=== PATIENT | male | born 1960 | race Caucasian/White ===

== ENCOUNTER → 2020-07-30 15:19 | Outpatient (CLI) | payer BC, SELFPAY ==
--- NOTE | 2020-07-30 | DI.CT.S_ITS ---
PROCEDURE: CT UE RT WO CON INDICATIONS: Pain in right shoulder TECHNIQUE: Noncontrast 1-1.5 mm thick sections acquired from the acromioclavicular joint to the inferior scapula, with coronal and sagittal reformatting. COMPARISON: [facility] [place], [place], XR SHOULDER 2+ VIEWS RIGHT, 07/15/2020, 15:13. FINDINGS: Image quality: Excellent. Bones: No fracture identified. There is advanced joint degeneration with [id number] appearance and severe subchondral cystic change and sclerosis. There is extensive marginal osteophyte formation. Soft tissues: Scattered scar/atelectasis in the visualized lung. There is a 5 mm nodule seen in the posterior subpleural right upper lobe . There is anatomic alignment at the AC joint. High-riding humeral head suggestive of chronic rotator cuff pathology. IMPRESSION: Advanced glenohumeral joint degeneration. High-riding appearance of the humeral head suggestive of chronic rotator cuff pathology. Nonspecific 5 mm nodular focus involving the posterior right upper lobe. Given the absence of relevant prior studies. Recommend follow-up with six-month CT chest to exclude early metastatic or malignant possibilities. Dictated by: Herb Mckinney M.D. on 07/30/2020 at 16:48 Approved by: Herb Mckinney M.D. on 07/30/2020 at 17:00
== END ==
PROVIDERS: Family Provider Family Medicine; PCP Family Medicine; Referring Provider Family Medicine; Visit Provider Orthopaedic Surgery
DX: M25.511 Pain in right shoulder (principal); M19.011 Primary osteoarthritis, right shoulder; R91.1 Solitary pulmonary nodule
CPT/HCPCS: 73200

== ENCOUNTER → 2020-09-25 11:05 | Outpatient (CLI) | payer BC, SELFPAY | PROVIDERS: Family Provider Family Medicine; PCP Family Medicine; Referring Provider Orthopaedic Surgery; Visit Provider Orthopaedic Surgery | DX: Z01.818 Encounter for other preprocedural examination (principal) | CPT/HCPCS: 93005 ==

== ENCOUNTER → 2020-10-04 11:09 | Outpatient (CLI) | payer BC, SELFPAY ==
[2020-10-04 11:44] LABS: COVID19 -Nasal RAPID Negative (Negative)
== END ==
PROVIDERS: Family Provider Family Medicine; PCP Family Medicine; Visit Provider Physician Assistant
DX: Z20.822 Contact with and (suspected) exposure to COVID-19 (principal)
CPT/HCPCS: 87635

== ENCOUNTER 2020-10-06 06:17 | Inpatient (IN) | payer BC, SELFPAY ==
[2020-10-06] VITALS (22 sets, daily range): BP systolic 84–154; BP diastolic 60–94; PULSE 66–100; RESP 11–18; TEMP 36.2–36.8; O2SAT 89–96; BMI 33.2
--- NOTE | 2020-10-06 06:00 | DI.RAD.S_ITS ---
PROCEDURE: XR SHOULDER RT MIN 2V INDICATIONS: post operative right shoulder TECHNIQUE: 1 views of the shoulder were acquired. COMPARISON: [facility], XR SHOULDER 2+ VIEWS RIGHT, 07/15/2020, 15:13. FINDINGS: Bones: A single view of the right shoulder demonstrates postoperative changes of a reverse shoulder replacement. No fracture is identified. Soft tissues: Postoperative soft tissue changes are noted with air in the soft tissues. The right lung has basilar atelectasis. IMPRESSION: Postoperative changes of right shoulder replacement. Dictated by: Parker Jaramillo M.D. on 10/06/2020 at 11:32 Approved by: Parker Jaramillo M.D. on 10/06/2020 at 11:34
[2020-10-06] MEDS: ACETAMINOPHEN 325 MG TABLET 975 MG PO (07:00)
[2020-10-06] MEDS: LACTATED RINGERS 1,000 ML 42 ML IV (07:15)
--- NOTE | 2020-10-06 07:37 | PM.PREOP ---
Pre-operative Note COVID-19 COVID-19 status: Negative Result date/Date tested (Pos, Neg/Pending): 10/04/20 Interval Note History & Physical reviewed/Exam performed by Physician: Yes Changes to H&P: No
[2020-10-06] MEDS: MIDAZOLAM 2 MG/2 ML VIAL IV (07:40)
[2020-10-06] MEDS: fentaNYL 100 MCG/2 ML INJ 50 MCG IV (07:40)
--- NOTE | 2020-10-06 08:07 | SUR.PREOP ---
Block start time [0740] . Monitoring initiated and maintained throughout procedure. Oxygen and medications given per anesthesiologist instructions. pt received 50 mcg fentanyl and 1mg versed per MD instruction at 0740. Patient remained stable throughout procedure, no adverse reactions noted. Block end time [0757 ].
[2020-10-06] MEDS: CEFAZOLIN 2 GM/100 ML FROZ.PIGGY IV (08:10)
--- NOTE | 2020-10-06 08:42 | SUR.OPER ---
Beach chair with Schlein shoulder positioner. Lower body on padded OR bed. Head in foam padded head cradle, secured with straps. Non-operative arm secured <90 degrees abduction. Pillow under knees. Safety belt at thigh. Cloth tape over blanket over lower legs.
[2020-10-06] MEDS: BUPIVACAINE 0.5% W/ EPI (PF) 30 ML VIAL INJ (08:53)
[2020-10-06] MEDS: TRANEXAMIC ACID 1,000 MG VIAL 1000 MG INJ ×2 (09:27→09:49)
--- NOTE | 2020-10-06 10:05 | PM.OP.1 ---
Operative Date/Time/Diagnoses Date of procedure: 10/06/20 Time of procedure: 10:05 Pre-op diagnosis: Right shoulder rheumatoid and osteoarthritis Post-op diagnosis: same Procedure & Clinicians Procedure: Right reverse total shoulder replacement Same procedure as scheduled: Yes Indications: The patient is had chronic right shoulder pain unresponsive to nonoperative therapies. Radiographic studies have revealed changes consistent with arthritis and a very thin rotator cuff. Given the appearance of the rotator cuff on preoperative studies and the known history of rheumatoid arthritis, which can lead to rotator cuff tears, I have recommended a reverse total shoulder. They have elected to proceed with this surgery after discussion of the risks benefits and alternatives. Risks discussed included but were not limited to: Failure to improve, instability, infection, nerve damage, deep venous thrombosis, pulmonary embolism, stroke, coma, myocardial infarction and . Surgeon: Maik Hernadez Animal Cytologist: Ganesh Lewis Click Yes if Unassisted: No Anesthesia Type: General, Peripheral nerve block and Local Operative Notes Findings: Complete loss of cartilage on both the glenoid and the humeral head with a large peripheral osteophyte on both the humerus and the glenoid. In addition there were large cysts in the glenoid head. Closure Type: primary Specimen(s): none sent Prosthetic devices, grafts, tissues, transplants, or devices: Implants used in this procedure were manufactured by the [employer] and included a [employer] reverse total shoulder system with a modular 24 mm +4 lateralized base plate with a 30 mm central screw, there were 4 peripheral locking screws that were 5.5 mm in diameter measuring 32, 32, 28 and 16 mm in length. A 36/24 glenosphere was used with a central torque screw. On the humeral side, a size 8 stem with a 36 neutral suture cup was placed with a 36+ 6 small humeral insert. Applied: implant(s) Estimated Blood Loss (mL): 200 Blood products transfused: none Procedure in detail: The patient was seen in the preoperative area where they identified the right shoulder as the operative site and this was marked with my initials. They received preoperative antibiotics and underwent the induction of an interscalene block. They were taken to the operating room and placed on the operating room table in a supine position with the underwent the induction of a general anesthetic. There were then repositioned in the ?beach chair? position using a dedicated positioner. All pressure points were well padded. The knees were slightly bent to prevent tension on the sciatic nerves. The right arm was prepared from the fingertips to the base of the neck with ChloraPrep in the usual fashion and draped through sterile drapes. An approximately 15 cm incision was created starting at the clavicle just above the coracoid and going to the deltoid insertion. The deltopectoral interval was used to access the shoulder taking the vein to the medial side. The vein was protected throughout the case. The upper 1 cm of the pectoralis major was released. The biceps groove was identified and used as a guide to releasing the remaining subscapularis. The biceps itself had previously ruptured. The subscapularis was tagged for manipulation of the muscle. The shoulder was dislocated and a proximal humeral osteotomy performed using an intramedullary guide. The proximal humeral osteophytes were then removed. A proximal humeral protector was then placed. Retractors were placed access the glenoid. A 360 degree release was performed of the remaining subscapularis with care being taken to protect the axillary nerve. The soft tissues were removed circumferentially around the glenoid. The guide was used to drill the guide pin in the center of the inferior glenoid. The Reamer was then used followed by the larger Reamer for the size 36 glenosphere. The center hole in the glenoid was enlarged and tapped, the glenoid base plate was then inserted. The peripheral locking screws were then placed. The glenoid head was applied and checked for rotational and axial stability before placing the set screw. We then turned our attention to the humerus. The proximal humeral protector was removed. Broaching was then performed beginning with a size 6 broach and working up until a size 8 which had excellent fit and rotational stability. The guide for the proximal metaphyseal reamer was then applied and the metaphysis was reamed appropriately. The trial metaphyseal portion of the body was then applied to the broach. Trial reductions were performed and the size of the cup were optimized. Stability was checked in maximal internal and external rotation and range of motion was checked to allow access to the top of the head, internal rotation to an excess of 50? in the ?scarecrow position? and the ability to reach the groin. The appropriate final prosthetic components were then opened. The humeral prosthetic was then impacted into position. The humeral cup was placed after checking again for offset with another trial. The joint was relocated and irrigated. The deltopectoral interval was reapproximated with 0 Vicryl. Subcutaneous layer was closed with interrupted 3-0 Vicryl and skin with a running 3 0 V lock suture and Dermabond. Subcutaneous tissues were then infiltrated with 0.5% Marcaine for postoperative pain control. An Aquacel Ag dressing was applied and the patient's arm was placed in a sling. The patient was then transferred to the recovery room in good condition having tolerated the procedure well. Complications: none Post-operative Condition: stable Disposition: PACU Plan for aftercare: The patient will be allowed to do pendulum exercises and to use his hand in front of his body below shoulder level for 6 weeks. He will then be advanced to a strengthening program. He will remain in the hospital overnight until he is stable for discharge home tomorrow.
[2020-10-06] MEDS: OXYCODONE IR 5 MG TABLET PO (10:43)
--- NOTE | 2020-10-06 11:14 | PC.NURSE ---
Day shift: Pt on AC untit from PACU at approx 1115. Oriented to room and call light. RA 95%. Uses CPAP for ARIK. VS WNL. Tolerating SCD's. Reports pain 03/28. Denies any nausea. Tolerating ice water. He is A&Ox3. Call light in reach. Agrees to not get OOB w/o help from staff.
[2020-10-06] MEDS: OXYCODONE IR 10 MG TABLET PO ×3 (11:26→19:37)
[2020-10-06] MEDS: LACTATED RINGERS 1,000 ML 100 ML IV ×2 (11:30→21:05)
[2020-10-06] MEDS: ACETAMINOPHEN 325 MG TABLET 650 MG PO ×2 (13:52→21:00)
[2020-10-06] MEDS: hydrOXYzine pamoate 25 MG CAPSULE PO (14:56)
--- NOTE | 2020-10-06 16:00 | PT.IIE ---
Current Diagnoses Rheumatoid arthritis, unspecified (10/06/20) Unspecified rotator cuff tear or rupture of right shoulder, not specified as traumatic (10/06/20) Surgery Performed Operation Date: 10/06/20 07:45 Actual Procedures p Total Shoulder Arthroplasty - Reverse(Right) - Maik Hernadez MD Surgical History (Last Reviewed 07/30/20 @ 16:39 by Bruno Pickens MD) History of bilateral knee replacement (~2009) Medical History (Last Updated 07/30/20 @ 17:04 by Bruno Pickens MD) BPH (benign prostatic hyperplasia) GERD (gastroesophageal reflux disease) Hypertension Obstructive sleep apnea of adult (~2004) Primary insomnia Rheumatoid arthritis Snoring Physical Therapy Inpatient Evaluation/Re-Eval M1 PT/OT-IP Prior Functional Status Start: 10/06/20 14:06 Freq: NEEDED Status: Active Protocol: Document 10/06/20 16:00 DLM (Rec: 10/06/20 17:23 DLM [id number]) Medical Review Prior Functional Status Medical History Reviewed Yes Diet/Fluid Consistency Regular Communication WNL Mobility and Gait Independent without device, community distances Activities of Daily Living and IADL's Independent Prior Functional Level (Other details) home CPAP Social History Household Members spouse Living Arrangements Mobile home Number of Floors (Floors) One Floor Number of Stairs To Enter/Railing? 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, has planned to take 12 weeks off of work, his will be available to help him at home, his works as a caregiver M2 PT-IP Current Condition Start: 10/06/20 14:06 Freq: NEEDED Status: Active Protocol: Document 10/06/20 16:00 DLM (Rec: 10/06/20 17:23 DLM [id number]) Physical Therapy Current Condition Current Condition Evaluation Date 10/06/20 Treatment Diagnosis right reverse total shoulder arthroplasty Onset Date 10/06/20 Precautions Shoulder Precautions Sling,No External Rotation,No Abduction,Pendulums Other Precautions no active use right shoulder, ok to use hand in front of body Weight Bearing Status Weight Bearing Status Non-Weight Bearing M3 PT-IP Subjective Start: 10/06/20 14:06 Freq: NEEDED Status: Active Protocol: Document 10/06/20 16:00 DLM (Rec: 10/06/20 17:23 [facility] [id number]) Subjective Physical Therapy Visit Type Type Initial Evaluation Visit Start Time 15:20 Visit Stop Time 16:00 Total Visit Minutes 40 Number of 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 Visits 0 Physical Therapy Visit Comments Patient Comments he would like to get up to toilet and sit up in the chair Patient Goals he wants to discharge home with his to help him Therapy Pain Assessment Pain When Pain Assessed After Treatment Pain Present Pain Present Pain Reported Location right shoulder Intensity 2 Scale Used Numeric (0 - 10) Description Aching Pain Behaviors Guarding Pain Management Techniques Apply Cold,Re-positioning M4 PT-IP Mobility and Gait Start: 10/06/20 14:06 Freq: NEEDED Status: Active Protocol: Document 10/06/20 16:00 DL (Rec: 10/06/20 17:23 [facility] [id number]) PT-Bed Mobility Assessment Supine to Sit Supine to Sit Contact Guard Assistance Scooting Scooting to Edge of Bed Independent PT-Transfer Assessment Sit to and From Stand Sit to and from Stand Standby Assistance Equipment Transfer Assistive Device Gait Belt Transfers Transfer Destination Bed,Chair Transfer Technique Stand Step Pivot Transfer Ability Level of Assist Standby Assistance Comments Mobility Comments mild intermittent episodes of dizziness that resolved with standing rest breaks Gait Assessment Gait Gait Assistance Required: Standby Assistance Distance (Feet) 120 Assistive Devices Assistive Device Gait Belt Factors Limiting Gait Function Factors Limiting Gait Function Decreased Activity Tolerance Comments Gait Comments slow pace of gait, standing rest breaks during gait to complete the distance PT-Balance Assessment Sitting Balance and Reactions Static Sitting Balance Ability Good Dynamic Sitting Balance Ability Good Standing Balance and Reactions Static Standing Balance Ability Good Dynamic Standing Balance Ability Good M5 PT-IP Objective Assessments Start: 10/06/20 14:06 Freq: NEEDED Status: Active Protocol: Document 10/06/20 16:00 DLM (Rec: 10/06/20 17:23 [facility] [id number]) Orientation Orientation/Cognition Level of Alertness Alert Orientation Name,Age,Birthday,Month,Date, Year,Day of Week,Place, Situation Language Function Ability No Deficits Noted Safety Awareness Understands Safety Issues Memory Description No Deficits Noted Comments answered his questions about his post-sx precautions, over- all he shows good understanding Gross Range of Motion Upper Extremity ROM Assessment Right Impaired Impairments no use right shoulder post-op, pt moving fingers today, block still in affect Lower Extremity ROM Assessment Within Functional Limits Strength Upper Extremity Strength Assessment Right Impaired Shoulder no functional use post-op Elbow weakness associated with surgical block operator moving fingers Lower Extremity Strength Assessment Within Functional Limits Coordination Assessment Gross Coordination Gross Coordination WNL Assessment Coordination Comments coordination testing not performed in right UE due to post-op restrictions and affects of surgical block Sensation Assessment Sensation Gross Sensation Right UE Impaired Light Touch Impaired Sensation Description Numbness Comments Sensation Comments surgical block in affect right UE Muscle Tone Muscle Tone WNL Yes Comments Muscle Tone Comments guarding noted right upper trap M6 PT-IP Treatment Start: 10/06/20 14:06 Freq: NEEDED Status: Active Protocol: Document 10/06/20 16:00 DLM (Rec: 10/06/20 17:23 DLM [id number]) Physical Therapy Treatment Exercises Exercises Hand ROM Education Education Provided Precautions,Safety Other Treatments Other Treatment Performed pt up to toilet to urinate and then sat up in recliner at the end of this visit, pt educated to have nursing staff assist with mobility, his call light is within reach M7 PT-IP Assessment and Plan Start: 10/06/20 14:06 Freq: NEEDED Status: Active Protocol: Document 10/06/20 16:00 DLM (Rec: 10/06/20 17:23 DLM [id number]) PT Summary Assessment and Plan Potential Rehabilitation Potential Good Status of Condition at Evaluation Evolving Summary Impairments Pain,ROM,Strength,Bed Mobility ,Transfers,Gait,Activity Tolerance Assessment Summary Hudson is progressing well on day of surgery. He is alert and tolerating ambulating in the nava. Intermittent dizziness caused his gait pattern to be slower and more cautious today. He reports feeling better after being up moving. Pt sitting up in recliner. His sling is in place on right shoulder and it was adjusted for comfort. Pt understands he is to avoid using right shoulder functionally. Anticipate he will be able to discharge home with his when he is medically stable. Will follow- up tomorrow to progress his mobility, teach post-op ex and educate in post-sx restrictions. Pt would prefer his to be present tomorrow for education and reports she will be here around 8 AM. Goals Bed Mobility Goal Independent Transfer Goal Independent Gait Goal Independent Gait Distance 300 Other Goals up and down 5 steps with one rail and SBA Days to Meet Goals 2 Frequency of Treatment Frequency Of Treatment Twice a Day Treatment Plan Physical Therapy Treatment Plan Bed Mobility Training,Transfer Training,Gait Training, Therapeutic Exercise,Post Op Education,Discharge Planning, Hot or Cold Pack Recommendations To Nursing Amount of Assist Needed Standby Assistance Discharge Recommendations PT Discharge Recommendations Home with Assistance, Outpatient PT Other Discharge Recommendations to start out-pt PT per surgeon orders Transportation Needs at Discharge Private Vehicle
--- NOTE | 2020-10-06 17:32 | PC.NURSE ---
Addendum entered by Kristin Kaur R.N. 10/06/20 22:03: Relatively uneventful evenig. Med @ 1935 for discomfort w/fair relief. IVF continue as per orders. Satisfactory post op course. Pt hopes D/C in am Call light w/in reach. Pt calls appropriately for needs Continue w/plan of care. Original Note: Pt ambulated hallway w/ PT Sitting in chair for dinner. SpO2 98% RA Right arm dsg CDI, arm in sling CMS + IV LR @ 100cc/hr infusing into the LFA via pump w/o incidence. Stable post op course. Call light w/in reach, pt calls appropriate for needs.
[2020-10-06] MEDS: DOCUSATE 100 MG CAPSULE PO (20:59)
[2020-10-06] MEDS: NAPROXEN 250 MG TABLET 500 MG PO (20:59)
[2020-10-06] MEDS: METOPROLOL ER 50 MG TABLET PO (21:00)
[2020-10-06] MEDS: ASPIRIN EC 81 MG TABLET PO (21:00)
[2020-10-06] MEDS: HYDRALAZINE 10 MG TABLET PO (21:01)
[2020-10-07] MEDS: OXYCODONE IR 10 MG TABLET PO ×4 (01:12→11:37)
[2020-10-07] MEDS: hydrOXYzine pamoate 25 MG CAPSULE PO ×2 (01:12→11:37)
[2020-10-07 03:27] VITALS: BP 135/85; PULSE 85; RESP 18; TEMP 36.3; O2SAT 96
[2020-10-07] MEDS: PANTOPRAZOLE 20 MG TABLET PO (05:39)
[2020-10-07 06:06] LABS: Hematocrit 39.5 % (41-53); Hemoglobin 13.4 g/dL (13.5-17.5)
[2020-10-07 07:43] VITALS: PULSE 85; RESP 16; O2SAT 96
[2020-10-07 07:50] VITALS: BP 140/84; PULSE 62; RESP 18; TEMP 37; O2SAT 97
[2020-10-07] MEDS: METOPROLOL ER 50 MG TABLET PO (08:28)
[2020-10-07] MEDS: HYDRALAZINE 10 MG TABLET PO (08:28)
[2020-10-07] MEDS: TAMSULOSIN 0.4 MG CAPSULE PO (08:28)
[2020-10-07] MEDS: ACYCLOVIR 400 MG TABLET PO (08:28)
[2020-10-07] MEDS: DOCUSATE 100 MG CAPSULE PO (08:28)
[2020-10-07] MEDS: LOSARTAN 50 MG TABLET 100 MG PO (08:28)
[2020-10-07] MEDS: ACETAMINOPHEN 325 MG TABLET 650 MG PO (08:29)
[2020-10-07] MEDS: ASPIRIN EC 81 MG TABLET PO (08:29)
[2020-10-07] MEDS: NAPROXEN 250 MG TABLET 500 MG PO (08:29)
[2020-10-07] MEDS: FOLIC ACID 0.4 MG TABLET PO (08:30)
--- NOTE | 2020-10-07 10:03 | P.PN_ITS ---
Subjective Subjective Date Patient Seen: 10/07/20 Time Patient Seen: 10:04 Interval history: Patient is POD#1 s/p right reverse TSA with Dr. Hernadez. Pain has been moderate and controlled with Oxycodone. Has mobilized with PT. No chest pain or shortness of breath. Tolerating a diet. No complaints. Exam Vital Signs (past 8 hours): - 10/07/20 03:27 10/07/20 07:43 10/07/20 07:50 Temperature 97.3 F L 98.6 F Pulse Rate 85 85 62 Respiratory Rate 18 16 18 Blood Pressure 135/85 140/84 Pulse Oximetry 96 96 97 Oxygen Delivery Method Room Air Oxygen Flow Rate 0 Narrative Exam Narrative: 59 year old male resting in chair, alert and oriented in no acute distress. Aquacel dressing in place is CDI. Patient able to flex/extend the wrist and fingers. 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 SILT. Brisk capillary refill. Objective Labs Result Diagrams: 10/07/20 05:40 Labs: Laboratory Results - last 24 hr 10/07/20 05:40 Hgb 13.4 L Hct 39.5 L PFSH Medical History BPH (benign prostatic hyperplasia) GERD (gastroesophageal reflux disease) Hypertension Obstructive sleep apnea of adult (~2004) Primary insomnia Rheumatoid arthritis Snoring Surgical History History of bilateral knee replacement (~2009) Social History household members: spouse Smoking Status: Former smoker alcohol intake: current Assessment & Plan Assessment & Plan narrative: -POD #1 s/p revere TSA. Patient doing well. -He has already worked with PT and was able to mobilize well. -Pain controlled with Oxycodone, prescription provided. -ASA 81mg BID for DVT prophylaxis. -Discharge to home later today.
--- NOTE | 2020-10-07 10:20 | PT.IPTN ---
Current Diagnoses Rheumatoid arthritis, unspecified (10/06/20) Unspecified rotator cuff tear or rupture of right shoulder, not specified as traumatic (10/06/20) Surgery Performed Operation Date: 10/06/20 07:45 Actual Procedures p Total Shoulder Arthroplasty - Reverse(Right) - Maik Hernadez MD Physical Therapy Treatment Note M2 PT-IP Current Condition Start: 10/06/20 14:06 Freq: NEEDED Status: Discharge Protocol: Document 10/06/20 16:00 DLM (Rec: 10/06/20 17:23 DLM [id number]) Physical Therapy Current Condition Current Condition Evaluation Date 10/06/20 Treatment Diagnosis right reverse total shoulder arthroplasty Onset Date 10/06/20 Precautions Shoulder Precautions Sling,No External Rotation,No Abduction,Pendulums Other Precautions no active use right shoulder, ok to use hand in front of body Weight Bearing Status Weight Bearing Status Non-Weight Bearing M3 PT-IP Subjective Start: 10/06/20 14:06 Freq: NEEDED Status: Discharge Protocol: Document 10/07/20 09:12 CLB (Rec: 10/07/20 12:08 CLB [id number]) Subjective Physical Therapy Visit Type Type Treatment Note Visit Start Time 09:12 Visit Stop Time 10:20 Total Visit Minutes 28 Notes split treat [phone] present Number of EXTERN Visits 1 Physical Therapy Visit Comments Patient Comments Pt eager to discharge. Therapy Pain Assessment Pain When Pain Assessed After Treatment Pain Present Pain Present Pain Reported M4 PT-IP Mobility and Gait Start: 10/06/20 14:06 Freq: NEEDED Status: Discharge Protocol: Document 10/07/20 09:12 CLB (Rec: 10/07/20 12:08 CLB [id number]) PT-Bed Mobility Assessment Supine to Sit Supine to Sit Standby Assistance PT-Transfer Assessment Sit to and From Stand Sit to and from Stand Standby Assistance Equipment Transfer Assistive Device Gait Belt Transfers Transfer Destination Chair Transfer Technique Stand Step Pivot Transfer Ability Level of Assist Standby Assistance Comments Mobility Comments Pt able to perform all mobility SBA, able to stand w/ o use of UE's, able to provide SBA with ambulation in nava and on stairs. Gait Assessment Gait Gait Assistance Required: Standby Assistance Distance (Feet) 275 Assistive Devices Assistive Device Gait Belt Factors Limiting Gait Function Factors Limiting Gait Function Decreased Activity Tolerance Comments Gait Comments Pt able to ambulate ~275ft with providing SBA, pt ambulates slowly but without need for rest breaks and no LOB. Stair Climbing Assessment Evaluation Level of Assist On Stairs Standby Assistance Devices Stair Climbing Assistive Devices Left Railing,Right Railing Technique/Endurance Stair Climbing Direction Ascend and Descend Stair Climbing Technique Step Over Step,Step to Step Number of Steps Climbed 3 Stair Climbing Set # Repetitions (reps) 2 Comments Stair Climbing Comments Pt ascended step over step and descended using step to step. M5 PT-IP Objective Assessments Start: 10/06/20 14:06 Freq: NEEDED Status: Discharge Protocol: Document 10/06/20 16:00 DLM (Rec: 10/06/20 17:23 DLM [id number]) Orientation Orientation/Cognition Level of Alertness Alert Orientation Name,Age,Birthday,Month,Date, Year,Day of Week,Place, Situation Language Function Ability No Deficits Noted Safety Awareness Understands Safety Issues Memory Description No Deficits Noted Comments answered his questions about his post-sx precautions, over- all he shows good understanding Gross Range of Motion Upper Extremity ROM Assessment Right Impaired Impairments no use right shoulder post-op, pt moving fingers today, block still in affect Lower Extremity ROM Assessment Within Functional Limits Strength Upper Extremity Strength Assessment Right Impaired Shoulder no functional use post-op Elbow weakness associated with surgical inverted block operator moving fingers Lower Extremity Strength Assessment Within Functional Limits Coordination Assessment Gross Coordination Gross Coordination WNL Assessment Coordination Comments coordination testing not performed in right UE due to post-op restrictions and affects of surgical block Sensation Assessment Sensation Gross Sensation Right UE Impaired Light Touch Impaired Sensation Description Numbness Comments Sensation Comments surgical block in affect right UE Muscle Tone Muscle Tone WNL Yes Comments Muscle Tone Comments guarding noted right upper trap M6 PT-IP Treatment Start: 10/06/20 14:06 Freq: NEEDED Status: Discharge Protocol: Document 10/07/20 09:12 CLB (Rec: 10/07/20 12:08 CLB [id number]) Physical Therapy Treatment Exercises Exercises Shoulder Pendulums,Wrist ROM, Hand ROM Education Education Provided Precautions,Safety Other Treatments Other Treatment Performed Pt instructed on galina/doff sling, able to assist. M7 PT-IP Assessment and Plan Start: 10/06/20 14:06 Freq: NEEDED Status: Discharge Protocol: Document 10/07/20 09:12 CLB (Rec: 10/07/20 12:08 CLB [id number]) PT Summary Assessment and Plan Potential Rehabilitation Potential Good Status of Condition at Evaluation Evolving Summary Impairments Pain,ROM,Strength,Bed Mobility ,Transfers,Gait,Activity Tolerance Assessment Summary Pt requiring SBA with assisting for all mobility. Pt able to climb steps and ambulated safely ~275ft. Pt's able to assist with galina/ doff sling. Goals Bed Mobility Goal Independent Transfer Goal Independent Gait Goal Independent Gait Distance 300 Other Goals up and down 5 steps with one rail and SBA Days to Meet Goals 2 Frequency of Treatment Frequency Of Treatment Twice a Day Treatment Plan Physical Therapy Treatment Plan Bed Mobility Training,Transfer Training,Gait Training, Therapeutic Exercise,Post Op Education,Discharge Planning, Hot or Cold Pack Recommendations To Nursing Amount of Assist Needed Standby Assistance Discharge Recommendations PT Discharge Recommendations Home with Assistance, Outpatient PT Other Discharge Recommendations to start out-pt PT per surgeon orders Transportation Needs at Discharge Private Vehicle
[2020-10-07 10:26] VITALS: BP 148/83; PULSE 67; PULSE 68
--- NOTE | 2020-10-07 11:47 | PC.NURSE ---
Day shift: Pt left unit at approx 1130 via WC. Pt is w/ his and she will drive him home to [facility]. Medicated for pain just prior to d/c. Paperwork is signed and all questions answered. Pt has MD scripts. Pt has all personal belongings. Aquacel remains CDI and sling tolerated by Pt. Takne to car in by MARCK Pan.
--- NOTE | 2020-10-07 14:36 | CM.IDA ---
Initial DCP Assessment Note Pt is a 59 yo male, resident of [place], now POD#1 from right total shoulder surgery w/ Dr Hernadez PCP: Bruno Pickens Payer: out of state [employer] gap Reviewed chart, pt discussed in multidisciplinary rounds this morning. Therapy has cleared pt for return home w/family to assist and pt has planned for home, DC order from Ortho has already been initiated this morning. No needs expected from DC planning team although will remain available in case this changes today. SONIA Decker
== END 2020-10-07 11:48 | disposition home or self-care (01) | DRG 483 ==
PROVIDERS: Admitting Provider Orthopaedic Surgery; Family Provider Family Medicine; PCP Family Medicine; Referring Provider Family Medicine; Visit Provider Orthopaedic Surgery
PROC: 0RRJ00Z Replacement of Right Shoulder Joint with Reverse Ball and Socket Synthetic Substitute, Open Approach (ICD-10-PCS; CPT 23472; principal; 2020-10-06 07:45)
DX: M06.811 Other specified rheumatoid arthritis, right shoulder (principal); M75.101 Unspecified rotator cuff tear or rupture of right shoulder, not specified as traumatic; I10 Essential (primary) hypertension; G47.33 Obstructive sleep apnea (adult) (pediatric); K21.9 Gastro-esophageal reflux disease without esophagitis; Z87.891 Personal history of nicotine dependence
CPT/HCPCS: 36415; 64415; 73030; 85014; 85018; 94762; 97116; 97162; 97530; C1776; J0330; J0690; J1100; J2250; J2405; J2704; J3010

== ENCOUNTER 2021-05-28 16:45 | Outpatient (RCR) | payer BC, SELFPAY ==
[2020-10-06 11:46] VITALS: BMI 33.2
--- NOTE | 2021-05-11 17:30 | PT.OPPOC ---
Physical, Occupational & Speech Therapy At [facility] Current Diagnoses Stiffness of other specified joint, not elsewhere classified (05/11/21) Spinal stenosis, lumbar region with neurogenic claudication (05/11/21) Visit Care Team Role Provider Type Bruno Pickens MD Family Provider Physician Primary Care Provider Specialty: Family Practice Address: [address] [place] [address], [id number] Email: [email or web address] Meek Mendez MD Attending Provider Physician Referring Provider Specialty: Physical Medicine and Rehab Address: [address] [place] [address], [address] Email: [email or web address] Plan Of Care PT-OP-T Assessment and Plan Start: 05/11/21 17:42 Freq: Status: Active Protocol: Document 05/11/21 16:45 DCW (Rec: 05/12/21 10:04 DCW [id number]) Physical Therapy Assessment Rehab Potential Rehabilitation Potential Good Evaluation Complexity Number of Personal Factors/Comorbidities 3 or More Number of Body Systems Impaired 4 or More Clinical Presentation at Evaluation Evolving Impairments Impairments Activity Tolerance,Functional Activities,Functional Mobility ,Pain,ROM,Soft Tissue Mobility ,Tone Other Concerns Barriers to Rehabilitation RA, HTN, Hx B TKA, Hx R reverse TSA Goals Three Impairment Pt unable to stand longer than 30 minutes without increased back pain Half-Way Goal (LTG) Pt to report ability to stand >60 minutes without increased back pain LTG Duration 07/12/21 Two Impairment Pt experiences increased pain when lifting more than 30 pounds Residential Collections Goal (LTG) Pt to increase core strength to assist stabilizing back during lifting to enable him to change water jugs (35 pounds) on his home water cooler without increased pain LTG Duration 07/11/21 One Impairment Pt does not have an appropriate home exercise program Short Term Goal (STG) Pt to be independent and compliant with an appropriate HEP STG Duration 06/11/21 Assessment Summary Assessment Pt presents with signs and symptoms consistent with referring diagnosis of Spinal stenosis/DJD in Lumbar spine. Pt exhibits decreased joint mobility/lumbar ROM, increased paraspinal tone, core weakness, and increased pain with standing/lifting. Pt should benefit from skilled therapy focusing on STM, joint mobilization, and strengthening. Pt rehab may be limited secondary to RA and recent total shoulder replacement. Physical Therapy Plan Frequency and Duration Frequency of Treatment 2x/Week Duration of Treatment Two months Plan of Care Start Date 05/11/21 Plan of Care End Date 07/11/21 Therapeutic Interventions Therapeutic Interventions Aquatic Therapy,Home Exercise Program,Joint Mobilizations, Neuromuscular Re-education, Patient/Caregiver Education, Self-Care/Home Management,Soft Tissue Mobilization, Therapeutic Activities, Therapeutic Exercises Modalities Cold Pack/Ice Massage,Electric Stimulation,Hot Packs, Ultrasound Next Visit Focus/Plan Next Note Type Treatment Note Next Visit Plan Core strengthening, STM, Joint mobilizations Plan of Care Dates Plan of Care Start Date 05/11/21 Plan of Care End Date 07/11/21 Electronically Signed by: Agustín Boss, PT 05/12/21 1004 Please Sign and Return: I have reviewed this Plan of Care and certify that the skilled therapy services above are required to meet the patient?s needs. Physician Signature Date Printed Name and Credentials Clinical Instructor Signature Printed Name and Credentials
--- NOTE | 2021-05-11 17:30 | PT.OIE ---
Current Diagnoses Stiffness of other specified joint, not elsewhere classified (05/11/21) Spinal stenosis, lumbar region with neurogenic claudication (05/11/21) Past Medical History (Last Updated 03/05/21 @ 16:27 by Bruno Pickens MD) BPH (benign prostatic hyperplasia) GERD (gastroesophageal reflux disease) History of bilateral knee replacement (~2009) Hypertension Obstructive sleep apnea of adult (~2004) Primary insomnia Rheumatoid arthritis Snoring Past Surgical History (Last Reviewed 10/07/20 @ 10:06 by Sarah Esqueda PA-C) History of bilateral knee replacement (~2009) Visit Care Team Role Provider Type Bruno Pickens MD Family Provider Physician Primary Care Provider Specialty: Family Practice Address: [address] [place] [address], [phone] Email: [email or web address] Meek Mendez MD Attending Provider Physician Referring Provider Specialty: Physical Medicine and Rehab Address: [address] [place] [address], [address] Email: [email or web address] Physical Therapy Initial Evaluation PT-OP-A Visit Information Start: 05/11/21 17:42 Freq: Status: Active Protocol: Document 05/11/21 16:45 DCW (Rec: 05/11/21 17:54 DC [id number]) Out-Patient Physical Therapy Visit Information Visit Information Visit Type Initial Evaluation Visit Start Time 16:45 Visit Stop Time 17:30 Total Visit Minutes 45 Visit Number 1 Number of MANAGER FINANCE Visits 0 Evaluation Information Evaluation Date 05/11/21 PT-OP-B Current Condition Start: 05/11/21 17:42 Freq: Status: Active Protocol: Document 05/11/21 16:45 DCW (Rec: 05/11/21 17:54 DCW [id number]) Current Condition History of Current Condition Onset Date Multi-year history Current Complaints Low back pain, stiffness, limited lifting, limited standing History of Current Condition Pt is a 60 year old male presenting with a long- standing history of low back pain, recently told he has DJD and lumbar stenosis. Pt additionally has RA, and has a lot of other affected joints, especially his ankles and hands. 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 Pt reports currently, his back bothers him when he lifts too much, like the 5 gallon water jugs for his water cooler, or if he stands for too long. Pt notes that where I am and where I should be are probably pretty far apart, but also admits that he has trouble telling how bad things are, because this has just slowly been building over a long time. Prior Treatments and Tests Hx Bilateral TKA Hx R Reverse TSA Treatment Goals Patient/Caregiver Goals I need to learn how to take care of my back so hopefully I can stop it from getting worse. Personal Factors Other Personal Factors That May Effect RA, OA, B TKA, R TSA Therapy/Recovery PT-OP-C Subjective Start: 05/11/21 17:42 Freq: Status: Active Protocol: Document 05/11/21 16:45 DCW (Rec: 05/11/21 17:54 DCW [id number]) OP-PT Subjective Patient Comments Patient Comments I have RA, so everything feels kind of tin-man-olesya. Patient Reported Progress Worse Patient Questionnaires Oswestry Low Back Index Oswestry Score 16/50 = 32% Oswestry Impairment 20 to 39% Impaired (Score 20- 39) OP-PT Pain Assessment Pain Assessment Grid Paper Pain Assessment Grid Completed Yes Location Low Back Intensity 4 Scale Used Numeric (0 - 10) PT-OP-F Manual Assessment Start: 05/11/21 17:42 Freq: Status: Active Protocol: Document 05/11/21 16:45 DCW (Rec: 05/12/21 09:54 DCW [id number]) Manual Assessments Soft Tissue Assessment Soft Tissue Mobility Assessment Moderate tone and tenderness bilateral QL, lumbar paraspinals Joint Mobility Assessment Joint Mobility Assessment P->A hypomobility T12, L1-4, complaints of tenderness PT-OP-K Range of Motion Start: 05/11/21 17:42 Freq: Status: Active Protocol: Document 05/11/21 16:45 DCW (Rec: 05/12/21 09:54 DCW [id number]) Lumbar Spine Range of Motion Lumbar Spine Active Degrees Testing Position Standing Flexion 50 Extension 12 Lateral Flexion Left 56 Lateral Flexion Right 60 Comments Lateral flexion measured in cm from fingertips to floor PT-OP-L Special Tests Start: 05/11/21 17:42 Freq: Status: Active Protocol: Document 05/11/21 16:45 DCW (Rec: 05/12/21 09:54 DCW [id number]) Special Tests Lumbar Spine Special Tests Lateral SI compression Test Results Negative KAMRON Test Results Negative Skip Test Results Negative Straight Leg Raise Test Results HS tightness, R=48?, L=55? Slump Test Results Negative Compression Test Results Negative A-P Shearing Test Results Negative PT-OP-M Strength Start: 05/11/21 17:42 Freq: Status: Active Protocol: Document 05/11/21 16:45 DCW (Rec: 05/12/21 09:54 DCW [id number]) Trunk Strength Trunk Manual Muscle Testing Core Stabilization MMT 4-/5, good TrA contraction , difficulty with maintaining PPT during SLR Hip Strength Hip Manual Muscle Testing Right Flexion (L2) 5 Normal Abduction 5 Normal Adduction 5 Normal External Rotation 5 Normal Internal Rotation 5 Normal Left Flexion (L2) 5 Normal Abduction 5 Normal Adduction 5 Normal External Rotation 5 Normal Internal Rotation 5 Normal Knee Strength Knee Manual Muscle Testing Right Flexion (S2) 5 Normal Extension (L3) 5 Normal Left Flexion (S2) 5 Normal Extension (L3) 5 Normal Ankle/Foot Strength Ankle and Foot Manual Muscle Testing Right Dorsiflexion (L4) 3+ Fair+ Plantarflexion (S1) 3+ Fair+ Inversion 5 Normal Eversion (S1) 5 Normal Comments PF/DF limited due to RA Left Dorsiflexion (L4) 5 Normal Plantarflexion (S1) 5 Normal Inversion 2+ Poor+ Eversion (S1) 2+ Poor+ Comments Inversion/Eversion limited due to RA PT-OP-T Assessment and Plan Start: 05/11/21 17:42 Freq: Status: Active Protocol: Document 05/11/21 16:45 DCW (Rec: 05/12/21 10:04 DCW [id number]) Physical Therapy Assessment Rehab Potential Rehabilitation Potential Good Evaluation Complexity Number of Personal Factors/Comorbidities 3 or More Number of Body Systems Impaired 4 or More Clinical Presentation at Evaluation Evolving Impairments Impairments Activity Tolerance,Functional Activities,Functional Mobility ,Pain,ROM,Soft Tissue Mobility ,Tone Other Concerns Barriers to Rehabilitation RA, HTN, Hx B TKA, Hx R reverse TSA Goals Three Impairment Pt unable to stand longer than 30 minutes without increased back pain Drift Miner Goal (LTG) Pt to report ability to stand >60 minutes without increased back pain LTG Duration 07/12/21 Two Impairment Pt experiences increased pain when lifting more than 30 pounds Retirement Goal (LTG) Pt to increase core strength to assist stabilizing back during lifting to enable him to change water jugs (35 pounds) on his home water cooler without increased pain LTG Duration 07/11/21 One Impairment Pt does not have an appropriate home exercise program Short Term Goal (STG) Pt to be independent and compliant with an appropriate HEP STG Duration 06/11/21 Assessment Summary Assessment Pt presents with signs and symptoms consistent with referring diagnosis of Spinal stenosis/DJD in Lumbar spine. Pt exhibits decreased joint mobility/lumbar ROM, increased paraspinal tone, core weakness, and increased pain with standing/lifting. Pt should benefit from skilled therapy focusing on STM, joint mobilization, and strengthening. Pt rehab may be limited secondary to RA and recent total shoulder replacement. Physical Therapy Plan Frequency and Duration Frequency of Treatment 2x/Week Duration of Treatment Two months Plan of Care Start Date 05/11/21 Plan of Care End Date 07/11/21 Therapeutic Interventions Therapeutic Interventions Aquatic Therapy,Home Exercise Program,Joint Mobilizations, Neuromuscular Re-education, Patient/Caregiver Education, Self-Care/Home Management,Soft Tissue Mobilization, Therapeutic Activities, Therapeutic Exercises Modalities Cold Pack/Ice Massage,Electric Stimulation,Hot Packs, Ultrasound Next Visit Focus/Plan Next Note Type Treatment Note Next Visit Plan Core strengthening, STM, Joint mobilizations
--- NOTE | 2021-05-14 17:26 | PT.OTN ---
Current Diagnoses Stiffness of other specified joint, not elsewhere classified (05/14/21) Spinal stenosis, lumbar region with neurogenic claudication (05/14/21) Physical Therapy Treatment Note PT-OP-A Visit Information Start: 05/11/21 17:42 Freq: Status: Active Protocol: Document 05/14/21 16:45 DCW (Rec: 05/14/21 17:25 DCW [id number]) Out-Patient Physical Therapy Visit Information Visit Information Visit Type Treatment Note Visit Note Visit 10/30 authorized through remainder of year Visit Start Time 16:45 Visit Stop Time 17:30 Total Visit Minutes 45 Visit Number 2 Number of STARCH CRAB Visits 0 Evaluation Information Evaluation Date 05/11/21 PT-OP-B Current Condition Start: 05/11/21 17:42 Freq: Status: Active Protocol: Document 05/11/21 16:45 DCW (Rec: 05/11/21 17:54 DCW [id number]) Current Condition History of Current Condition Onset Date Multi-year history Current Complaints Low back pain, stiffness, limited lifting, limited standing History of Current Condition Pt is a 60 year old male presenting with a long- standing history of low back pain, recently told he has DJD and lumbar stenosis. Pt additionally has RA, and has a lot of other affected joints, especially his ankles and hands. 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 Pt reports currently, his back bothers him when he lifts too much, like the 5 gallon water jugs for his water cooler, or if he stands for too long. Pt notes that where I am and where I should be are probably pretty far apart, but also admits that he has trouble telling how bad things are, because this has just slowly been building over a long time. Prior Treatments and Tests Hx Bilateral TKA Hx R Reverse TSA Treatment Goals Patient/Caregiver Goals I need to learn how to take care of my back so hopefully I can stop it from getting worse. Personal Factors Other Personal Factors That May Effect RA, OA, B TKA, R TSA Therapy/Recovery PT-OP-C Subjective Start: 05/11/21 17:42 Freq: Status: Active Protocol: Document 05/14/21 16:45 DCW (Rec: 05/14/21 17:25 DCW [id number]) OP-PT Subjective Patient Comments Patient Comments I didn't really abuse my back too much today, so I'm alright. PT-OP-F Manual Assessment Start: 05/11/21 17:42 Freq: Status: Active Protocol: Document 05/11/21 16:45 DCW (Rec: 05/12/21 09:54 DCW [id number]) Manual Assessments Soft Tissue Assessment Soft Tissue Mobility Assessment Moderate tone and tenderness bilateral QL, lumbar paraspinals Joint Mobility Assessment Joint Mobility Assessment P->A hypomobility T12, L1-4, complaints of tenderness PT-OP-K Range of Motion Start: 05/11/21 17:42 Freq: Status: Active Protocol: Document 05/11/21 16:45 DCW (Rec: 05/12/21 09:54 DCW [id number]) Lumbar Spine Range of Motion Lumbar Spine Active Degrees Testing Position Standing Flexion 50 Extension 12 Lateral Flexion Left 56 Lateral Flexion Right 60 Comments Lateral flexion measured in cm from fingertips to floor PT-OP-L Special Tests Start: 05/11/21 17:42 Freq: Status: Active Protocol: Document 05/11/21 16:45 DCW (Rec: 05/12/21 09:54 DCW [id number]) Special Tests Lumbar Spine Special Tests Lateral SI compression Test Results Negative KAMRON Test Results Negative Skip Test Results Negative Straight Leg Raise Test Results HS tightness, R=48?, L=55? Slump Test Results Negative Compression Test Results Negative A-P Shearing Test Results Negative PT-OP-M Strength Start: 05/11/21 17:42 Freq: Status: Active Protocol: Document 05/11/21 16:45 DCW (Rec: 05/12/21 09:54 DCW [id number]) Trunk Strength Trunk Manual Muscle Testing Core Stabilization MMT 4-/5, good TrA contraction , difficulty with maintaining PPT during SLR Hip Strength Hip Manual Muscle Testing Right Flexion (L2) 5 Normal Abduction 5 Normal Adduction 5 Normal External Rotation 5 Normal Internal Rotation 5 Normal Left Flexion (L2) 5 Normal Abduction 5 Normal Adduction 5 Normal External Rotation 5 Normal Internal Rotation 5 Normal Knee Strength Knee Manual Muscle Testing Right Flexion (S2) 5 Normal Extension (L3) 5 Normal Left Flexion (S2) 5 Normal Extension (L3) 5 Normal Ankle/Foot Strength Ankle and Foot Manual Muscle Testing Right Dorsiflexion (L4) 3+ Fair+ Plantarflexion (S1) 3+ Fair+ Inversion 5 Normal Eversion (S1) 5 Normal Comments PF/DF limited due to RA Left Dorsiflexion (L4) 5 Normal Plantarflexion (S1) 5 Normal Inversion 2+ Poor+ Eversion (S1) 2+ Poor+ Comments Inversion/Eversion limited due to RA PT-OP-Q Treatments Start: 05/11/21 17:42 Freq: Status: Active Protocol: Document 05/14/21 16:45 DCW (Rec: 05/14/21 17:25 DCW [id number]) Cardio Equipment Recumbent Elliptical (Bi[employer]) Duration (Minutes) 5 Resistance 5 Seat Position 11 Gym Equipment Cable Column (Body Solid) Pallof Press Resistance 20# Shuttle Recovery Unilateral Squats Resistance 75# Bilateral Squats Resistance 125# Therapeutic Ball 1 Exercise Details Low Trunk Rotation Ball Size/Color Red - 55 cm Body Position Supine Manual Therapy Treatment Soft Tissue Mobilization 1 Body Location B Lumbar paraspinals, QL, Piriformis Mobilization Type Strumming,Sustained Pressure Intensity/Depth Moderate Body Position Sidelying PT-OP-T Assessment and Plan Start: 05/11/21 17:42 Freq: Status: Active Protocol: Document 05/14/21 16:45 DCW (Rec: 05/14/21 17:25 DCW [id number]) Physical Therapy Assessment Impairments Impairments Activity Tolerance,Functional Activities,Functional Mobility ,Pain,ROM,Soft Tissue Mobility ,Tone Goals Three Impairment Pt unable to stand longer than 30 minutes without increased back pain Lard Refiner Goal (LTG) Pt to report ability to stand >60 minutes without increased back pain LTG Duration 07/12/21 Two Impairment Pt experiences increased pain when lifting more than 30 pounds Long-Term Goal (LTG) Pt to increase core strength to assist stabilizing back during lifting to enable him to change water jugs (35 pounds) on his home water cooler without increased pain LTG Duration 07/11/21 One Impairment Pt does not have an appropriate home exercise program Short Term Goal (STG) Pt to be independent and compliant with an appropriate HEP STG Duration 06/11/21 Assessment Summary Assessment Pt tolerated treatment very well, felt much better following exercises for lumbar rotation Physical Therapy Plan Frequency and Duration Frequency of Treatment 2x/Week Duration of Treatment Two months Plan of Care Start Date 05/11/21 Plan of Care End Date 07/11/21 Therapeutic Interventions Therapeutic Interventions Aquatic Therapy,Home Exercise Program,Joint Mobilizations, Neuromuscular Re-education, Patient/Caregiver Education, Self-Care/Home Management,Soft Tissue Mobilization, Therapeutic Activities, Therapeutic Exercises Modalities Cold Pack/Ice Massage,Electric Stimulation,Hot Packs, Ultrasound Next Visit Focus/Plan Next Note Type Treatment Note Next Visit Plan Core strengthening, STM, Joint mobilizations
--- NOTE | 2021-05-18 17:33 | PT.OTN ---
Current Diagnoses Stiffness of other specified joint, not elsewhere classified (05/18/21) Spinal stenosis, lumbar region with neurogenic claudication (05/18/21) Physical Therapy Treatment Note PT-OP-A Visit Information Start: 05/11/21 17:42 Freq: Status: Active Protocol: Document 05/18/21 16:45 DCW (Rec: 05/18/21 17:33 DCW [id number]) Out-Patient Physical Therapy Visit Information Visit Information Visit Type Treatment Note Visit Note Visit 11/27 authorized through remainder of year Visit Start Time 16:45 Visit Stop Time 17:30 Total Visit Minutes 45 Visit Number 3 Number of FELT STRIP FINISHER Visits 0 Evaluation Information Evaluation Date 05/11/21 PT-OP-B Current Condition Start: 05/11/21 17:42 Freq: Status: Active Protocol: Document 05/11/21 16:45 DCW (Rec: 05/11/21 17:54 DCW [id number]) Current Condition History of Current Condition Onset Date Multi-year history Current Complaints Low back pain, stiffness, limited lifting, limited standing History of Current Condition Pt is a 60 year old male presenting with a long- standing history of low back pain, recently told he has DJD and lumbar stenosis. Pt additionally has RA, and has a lot of other affected joints, especially his ankles and hands. 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 Pt reports currently, his back bothers him when he lifts too much, like the 5 gallon water jugs for his water cooler, or if he stands for too long. Pt notes that where I am and where I should be are probably pretty far apart, but also admits that he has trouble telling how bad things are, because this has just slowly been building over a long time. Prior Treatments and Tests Hx Bilateral TKA Hx R Reverse TSA Treatment Goals Patient/Caregiver Goals I need to learn how to take care of my back so hopefully I can stop it from getting worse. Personal Factors Other Personal Factors That May Effect RA, OA, B TKA, R TSA Therapy/Recovery PT-OP-C Subjective Start: 05/11/21 17:42 Freq: Status: Active Protocol: Document 05/18/21 16:45 DCW (Rec: 05/18/21 17:33 DCW [id number]) OP-PT Subjective Patient Comments Patient Comments Pt reports he felt really good the rest of the night following his last session, but it didn't take me long to screw it up the next day. PT-OP-F Manual Assessment Start: 05/11/21 17:42 Freq: Status: Active Protocol: Document 05/11/21 16:45 DCW (Rec: 05/12/21 09:54 DCW [id number]) Manual Assessments Soft Tissue Assessment Soft Tissue Mobility Assessment Moderate tone and tenderness bilateral QL, lumbar paraspinals Joint Mobility Assessment Joint Mobility Assessment P->A hypomobility T12, L1-4, complaints of tenderness PT-OP-K Range of Motion Start: 05/11/21 17:42 Freq: Status: Active Protocol: Document 05/11/21 16:45 DCW (Rec: 05/12/21 09:54 DCW [id number]) Lumbar Spine Range of Motion Lumbar Spine Active Degrees Testing Position Standing Flexion 50 Extension 12 Lateral Flexion Left 56 Lateral Flexion Right 60 Comments Lateral flexion measured in cm from fingertips to floor PT-OP-L Special Tests Start: 05/11/21 17:42 Freq: Status: Active Protocol: Document 05/11/21 16:45 DCW (Rec: 05/12/21 09:54 DCW [id number]) Special Tests Lumbar Spine Special Tests Lateral SI compression Test Results Negative KAMRON Test Results Negative Skip Test Results Negative Straight Leg Raise Test Results HS tightness, R=48?, L=55? Slump Test Results Negative Compression Test Results Negative A-P Shearing Test Results Negative PT-OP-M Strength Start: 05/11/21 17:42 Freq: Status: Active Protocol: Document 05/11/21 16:45 DCW (Rec: 05/12/21 09:54 DCW [id number]) Trunk Strength Trunk Manual Muscle Testing Core Stabilization MMT 4-/5, good TrA contraction , difficulty with maintaining PPT during SLR Hip Strength Hip Manual Muscle Testing Right Flexion (L2) 5 Normal Abduction 5 Normal Adduction 5 Normal External Rotation 5 Normal Internal Rotation 5 Normal Left Flexion (L2) 5 Normal Abduction 5 Normal Adduction 5 Normal External Rotation 5 Normal Internal Rotation 5 Normal Knee Strength Knee Manual Muscle Testing Right Flexion (S2) 5 Normal Extension (L3) 5 Normal Left Flexion (S2) 5 Normal Extension (L3) 5 Normal Ankle/Foot Strength Ankle and Foot Manual Muscle Testing Right Dorsiflexion (L4) 3+ Fair+ Plantarflexion (S1) 3+ Fair+ Inversion 5 Normal Eversion (S1) 5 Normal Comments PF/DF limited due to RA Left Dorsiflexion (L4) 5 Normal Plantarflexion (S1) 5 Normal Inversion 2+ Poor+ Eversion (S1) 2+ Poor+ Comments Inversion/Eversion limited due to RA PT-OP-Q Treatments Start: 05/11/21 17:42 Freq: Status: Active Protocol: Document 05/18/21 16:45 DCW (Rec: 05/18/21 17:33 DCW [id number]) Cardio Equipment Recumbent Elliptical ([employer]) Duration (Minutes) 6 Resistance 5 Seat Position 11 Gym Equipment Therapeutic Ball 1 Exercise Details Low Trunk Rotation Ball Size/Color Red - 55 cm Body Position Supine Therapeutic Exercises Prone Exercises 2 Prone Exercise Name Thread the Needle 1 Prone Exercise Name Cat/Camel Sidelying Exercises 3 Sidelying Exercise Name Reverse Clamshell Side bilateral 2 Sidelying Exercise Name Clamshell Side bilateral 1 Sidelying Exercise Name Reach and Roll Side bilateral Manual Therapy Treatment Soft Tissue Mobilization 1 Body Location B Lumbar paraspinals, QL, Piriformis Mobilization Type Strumming,Sustained Pressure Intensity/Depth Moderate Body Position Sidelying PT-OP-T Assessment and Plan Start: 05/11/21 17:42 Freq: Status: Active Protocol: Document 05/18/21 16:45 DCW (Rec: 05/18/21 17:33 DCW [id number]) Physical Therapy Assessment Impairments Impairments Activity Tolerance,Functional Activities,Functional Mobility ,Pain,ROM,Soft Tissue Mobility ,Tone Goals Three Impairment Pt unable to stand longer than 30 minutes without increased back pain Alf Goal (LTG) Pt to report ability to stand >60 minutes without increased back pain LTG Duration 07/12/21 Two Impairment Pt experiences increased pain when lifting more than 30 pounds Retail Planning Manager Goal (LTG) Pt to increase core strength to assist stabilizing back during lifting to enable him to change water jugs (35 pounds) on his home water cooler without increased pain LTG Duration 07/11/21 One Impairment Pt does not have an appropriate home exercise program Short Term Goal (STG) Pt to be independent and compliant with an appropriate HEP STG Duration 06/11/21 Assessment Summary Assessment Pt doing very well with PT, given handouts for additional HEP, pt feeling that it is helping him quite a bit so far . Physical Therapy Plan Frequency and Duration Frequency of Treatment 2x/Week Duration of Treatment Two months Plan of Care Start Date 05/11/21 Plan of Care End Date 07/11/21 Therapeutic Interventions Therapeutic Interventions Aquatic Therapy,Home Exercise Program,Joint Mobilizations, Neuromuscular Re-education, Patient/Caregiver Education, Self-Care/Home Management,Soft Tissue Mobilization, Therapeutic Activities, Therapeutic Exercises Modalities Cold Pack/Ice Massage,Electric Stimulation,Hot Packs, Ultrasound Next Visit Focus/Plan Next Note Type Treatment Note Next Visit Plan Core strengthening, STM, Joint mobilizations
--- NOTE | 2021-05-20 17:01 | PT.OTN ---
Current Diagnoses Stiffness of other specified joint, not elsewhere classified (05/20/21) Spinal stenosis, lumbar region with neurogenic claudication (05/20/21) Physical Therapy Treatment Note PT-OP-A Visit Information Start: 05/11/21 17:42 Freq: Status: Active Protocol: Document 05/20/21 16:20 DCW (Rec: 05/20/21 17:01 DCW [id number]) Out-Patient Physical Therapy Visit Information Visit Information Visit Type Treatment Note Visit Note Visit 12/28 authorized through remainder of year Visit Start Time 16:20 Visit Stop Time 17:05 Total Visit Minutes 45 Visit Number 4 Number of MVA REACTOR OPERATOR Visits 0 Evaluation Information Evaluation Date 05/11/21 PT-OP-B Current Condition Start: 05/11/21 17:42 Freq: Status: Active Protocol: Document 05/11/21 16:45 DCW (Rec: 05/11/21 17:54 DCW [id number]) Current Condition History of Current Condition Onset Date Multi-year history Current Complaints Low back pain, stiffness, limited lifting, limited standing History of Current Condition Pt is a 60 year old male presenting with a long- standing history of low back pain, recently told he has DJD and lumbar stenosis. Pt additionally has RA, and has a lot of other affected joints, especially his ankles and hands. 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 Pt reports currently, his back bothers him when he lifts too much, like the 5 gallon water jugs for his water cooler, or if he stands for too long. Pt notes that where I am and where I should be are probably pretty far apart, but also admits that he has trouble telling how bad things are, because this has just slowly been building over a long time. Prior Treatments and Tests Hx Bilateral TKA Hx R Reverse TSA Treatment Goals Patient/Caregiver Goals I need to learn how to take care of my back so hopefully I can stop it from getting worse. Personal Factors Other Personal Factors That May Effect RA, OA, B TKA, R TSA Therapy/Recovery PT-OP-C Subjective Start: 05/11/21 17:42 Freq: Status: Active Protocol: Document 05/20/21 16:20 DCW (Rec: 05/20/21 17:01 DCW [id number]) OP-PT Subjective Patient Comments Patient Comments Pt reports his work truck broke today, which resulted in him getting in lots of weird positions trying to fix it, which may not have been good. PT-OP-F Manual Assessment Start: 05/11/21 17:42 Freq: Status: Active Protocol: Document 05/11/21 16:45 DCW (Rec: 05/12/21 09:54 DCW [id number]) Manual Assessments Soft Tissue Assessment Soft Tissue Mobility Assessment Moderate tone and tenderness bilateral QL, lumbar paraspinals Joint Mobility Assessment Joint Mobility Assessment P->A hypomobility T12, L1-4, complaints of tenderness PT-OP-K Range of Motion Start: 05/11/21 17:42 Freq: Status: Active Protocol: Document 05/11/21 16:45 DCW (Rec: 05/12/21 09:54 DCW [id number]) Lumbar Spine Range of Motion Lumbar Spine Active Degrees Testing Position Standing Flexion 50 Extension 12 Lateral Flexion Left 56 Lateral Flexion Right 60 Comments Lateral flexion measured in cm from fingertips to floor PT-OP-L Special Tests Start: 05/11/21 17:42 Freq: Status: Active Protocol: Document 05/11/21 16:45 DCW (Rec: 05/12/21 09:54 DCW [id number]) Special Tests Lumbar Spine Special Tests Lateral SI compression Test Results Negative KAMRON Test Results Negative Skip Test Results Negative Straight Leg Raise Test Results HS tightness, R=48?, L=55? Slump Test Results Negative Compression Test Results Negative A-P Shearing Test Results Negative PT-OP-M Strength Start: 05/11/21 17:42 Freq: Status: Active Protocol: Document 05/11/21 16:45 DCW (Rec: 05/12/21 09:54 DCW [id number]) Trunk Strength Trunk Manual Muscle Testing Core Stabilization MMT 4-/5, good TrA contraction , difficulty with maintaining PPT during SLR Hip Strength Hip Manual Muscle Testing Right Flexion (L2) 5 Normal Abduction 5 Normal Adduction 5 Normal External Rotation 5 Normal Internal Rotation 5 Normal Left Flexion (L2) 5 Normal Abduction 5 Normal Adduction 5 Normal External Rotation 5 Normal Internal Rotation 5 Normal Knee Strength Knee Manual Muscle Testing Right Flexion (S2) 5 Normal Extension (L3) 5 Normal Left Flexion (S2) 5 Normal Extension (L3) 5 Normal Ankle/Foot Strength Ankle and Foot Manual Muscle Testing Right Dorsiflexion (L4) 3+ Fair+ Plantarflexion (S1) 3+ Fair+ Inversion 5 Normal Eversion (S1) 5 Normal Comments PF/DF limited due to RA Left Dorsiflexion (L4) 5 Normal Plantarflexion (S1) 5 Normal Inversion 2+ Poor+ Eversion (S1) 2+ Poor+ Comments Inversion/Eversion limited due to RA PT-OP-Q Treatments Start: 05/11/21 17:42 Freq: Status: Active Protocol: Document 05/20/21 16:20 DCW (Rec: 05/20/21 17:01 DCW [id number]) Cardio Equipment Recumbent Elliptical (Bi[employer]) Duration (Minutes) 6 Resistance 5 Seat Position 11 Gym Equipment Shuttle Recovery Unilateral Squats Resistance 75# Bilateral Squats Resistance 125# Shuttle Balance Red Details WBOS, Staggered Therapeutic Ball 1 Exercise Details Low Trunk Rotation Ball Size/Color Red - 55 cm Body Position Supine Therapeutic Exercises Sidelying Exercises 1 Sidelying Exercise Name Reach and Roll Side bilateral Manual Therapy Treatment Soft Tissue Mobilization 1 Body Location B Lumbar paraspinals, QL, Piriformis Mobilization Type Strumming,Sustained Pressure Intensity/Depth Moderate Body Position Sidelying PT-OP-T Assessment and Plan Start: 05/11/21 17:42 Freq: Status: Active Protocol: Document 05/20/21 16:20 DCW (Rec: 05/20/21 17:01 DCW [id number]) Physical Therapy Assessment Impairments Impairments Activity Tolerance,Functional Activities,Functional Mobility ,Pain,ROM,Soft Tissue Mobility ,Tone Goals Three Impairment Pt unable to stand longer than 30 minutes without increased back pain Long-Term Goal (LTG) Pt to report ability to stand >60 minutes without increased back pain LTG Duration 07/12/21 Two Impairment Pt experiences increased pain when lifting more than 30 pounds Safety Coordinator Goal (LTG) Pt to increase core strength to assist stabilizing back during lifting to enable him to change water jugs (35 pounds) on his home water cooler without increased pain LTG Duration 07/11/21 One Impairment Pt does not have an appropriate home exercise program Short Term Goal (STG) Pt to be independent and compliant with an appropriate HEP STG Duration 06/11/21 Assessment Summary Assessment Pt continues to progress well with PT, admits he hasn't been as regular with his HEP has he would like to be. Physical Therapy Plan Frequency and Duration Frequency of Treatment 2x/Week Duration of Treatment Two months Plan of Care Start Date 05/11/21 Plan of Care End Date 07/11/21 Therapeutic Interventions Therapeutic Interventions Aquatic Therapy,Home Exercise Program,Joint Mobilizations, Neuromuscular Re-education, Patient/Caregiver Education, Self-Care/Home Management,Soft Tissue Mobilization, Therapeutic Activities, Therapeutic Exercises Modalities Cold Pack/Ice Massage,Electric Stimulation,Hot Packs, Ultrasound Next Visit Focus/Plan Next Note Type Treatment Note Next Visit Plan Core strengthening, STM, Joint mobilizations
--- NOTE | 2021-05-26 17:43 | PT.OTN ---
Current Diagnoses Stiffness of other specified joint, not elsewhere classified (05/26/21) Spinal stenosis, lumbar region with neurogenic claudication (05/26/21) Physical Therapy Treatment Note PT-OP-A Visit Information Start: 05/11/21 17:42 Freq: Status: Active Protocol: Document 05/26/21 16:49 DCW (Rec: 05/26/21 17:42 DCW [id number]) Out-Patient Physical Therapy Visit Information Visit Information Visit Type Treatment Note Visit Note Visit 01/27 authorized through remainder of year Visit Start Time 16:49 Visit Stop Time 17:30 Total Visit Minutes 41 Visit Number 5 Number of CAR FERRY CAPTAIN Visits 0 Evaluation Information Evaluation Date 05/11/21 PT-OP-B Current Condition Start: 05/11/21 17:42 Freq: Status: Active Protocol: Document 05/11/21 16:45 DCW (Rec: 05/11/21 17:54 DCW [id number]) Current Condition History of Current Condition Onset Date Multi-year history Current Complaints Low back pain, stiffness, limited lifting, limited standing History of Current Condition Pt is a 60 year old male presenting with a long- standing history of low back pain, recently told he has DJD and lumbar stenosis. Pt additionally has RA, and has a lot of other affected joints, especially his ankles and hands. 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 Pt reports currently, his back bothers him when he lifts too much, like the 5 gallon water jugs for his water cooler, or if he stands for too long. Pt notes that where I am and where I should be are probably pretty far apart, but also admits that he has trouble telling how bad things are, because this has just slowly been building over a long time. Prior Treatments and Tests Hx Bilateral TKA Hx R Reverse TSA Treatment Goals Patient/Caregiver Goals I need to learn how to take care of my back so hopefully I can stop it from getting worse. Personal Factors Other Personal Factors That May Effect RA, OA, B TKA, R TSA Therapy/Recovery PT-OP-C Subjective Start: 05/11/21 17:42 Freq: Status: Active Protocol: Document 05/26/21 16:49 DCW (Rec: 05/26/21 17:43 DCW [id number]) OP-PT Subjective Patient Comments Patient Comments Pt reports he is doing well today, he had less time driving over bumpy roads in his truck, so his back is feeling pretty good. PT-OP-F Manual Assessment Start: 05/11/21 17:42 Freq: Status: Active Protocol: Document 05/11/21 16:45 DCW (Rec: 05/12/21 09:54 DCW [id number]) Manual Assessments Soft Tissue Assessment Soft Tissue Mobility Assessment Moderate tone and tenderness bilateral QL, lumbar paraspinals Joint Mobility Assessment Joint Mobility Assessment P->A hypomobility T12, L1-4, complaints of tenderness PT-OP-K Range of Motion Start: 05/11/21 17:42 Freq: Status: Active Protocol: Document 05/11/21 16:45 DCW (Rec: 05/12/21 09:54 DCW [id number]) Lumbar Spine Range of Motion Lumbar Spine Active Degrees Testing Position Standing Flexion 50 Extension 12 Lateral Flexion Left 56 Lateral Flexion Right 60 Comments Lateral flexion measured in cm from fingertips to floor PT-OP-L Special Tests Start: 05/11/21 17:42 Freq: Status: Active Protocol: Document 05/11/21 16:45 DCW (Rec: 05/12/21 09:54 DCW [id number]) Special Tests Lumbar Spine Special Tests Lateral SI compression Test Results Negative KAMRON Test Results Negative Skip Test Results Negative Straight Leg Raise Test Results HS tightness, R=48?, L=55? Slump Test Results Negative Compression Test Results Negative A-P Shearing Test Results Negative PT-OP-M Strength Start: 05/11/21 17:42 Freq: Status: Active Protocol: Document 05/11/21 16:45 DCW (Rec: 05/12/21 09:54 DCW [id number]) Trunk Strength Trunk Manual Muscle Testing Core Stabilization MMT 4-/5, good TrA contraction , difficulty with maintaining PPT during SLR Hip Strength Hip Manual Muscle Testing Right Flexion (L2) 5 Normal Abduction 5 Normal Adduction 5 Normal External Rotation 5 Normal Internal Rotation 5 Normal Left Flexion (L2) 5 Normal Abduction 5 Normal Adduction 5 Normal External Rotation 5 Normal Internal Rotation 5 Normal Knee Strength Knee Manual Muscle Testing Right Flexion (S2) 5 Normal Extension (L3) 5 Normal Left Flexion (S2) 5 Normal Extension (L3) 5 Normal Ankle/Foot Strength Ankle and Foot Manual Muscle Testing Right Dorsiflexion (L4) 3+ Fair+ Plantarflexion (S1) 3+ Fair+ Inversion 5 Normal Eversion (S1) 5 Normal Comments PF/DF limited due to RA Left Dorsiflexion (L4) 5 Normal Plantarflexion (S1) 5 Normal Inversion 2+ Poor+ Eversion (S1) 2+ Poor+ Comments Inversion/Eversion limited due to RA PT-OP-Q Treatments Start: 05/11/21 17:42 Freq: Status: Active Protocol: Document 05/26/21 16:49 DCW (Rec: 05/26/21 17:42 DCW [id number]) Cardio Equipment Recumbent Elliptical (Biodex) Duration (Minutes) 6 Resistance 5 Seat Position 11 Gym Equipment Shuttle Recovery Unilateral Squats Resistance 75# Bilateral Squats Resistance 125# Therapeutic Ball 1 Exercise Details Low Trunk Rotation Ball Size/Color Red - 55 cm Body Position Supine Manual Therapy Treatment Soft Tissue Mobilization 1 Body Location B Lumbar paraspinals, QL, Piriformis Mobilization Type Strumming,Sustained Pressure Intensity/Depth Moderate Body Position Sidelying PT-OP-T Assessment and Plan Start: 05/11/21 17:42 Freq: Status: Active Protocol: Document 05/26/21 16:49 DCW (Rec: 05/26/21 17:42 DCW [id number]) Physical Therapy Assessment Impairments Impairments Activity Tolerance,Functional Activities,Functional Mobility ,Pain,ROM,Soft Tissue Mobility ,Tone Goals Three Impairment Pt unable to stand longer than 30 minutes without increased back pain Chcf Goal (LTG) Pt to report ability to stand >60 minutes without increased back pain LTG Duration 07/12/21 Two Impairment Pt experiences increased pain when lifting more than 30 pounds Diesel Power Mechanic Goal (LTG) Pt to increase core strength to assist stabilizing back during lifting to enable him to change water jugs (35 pounds) on his home water cooler without increased pain LTG Duration 07/11/21 One Impairment Pt does not have an appropriate home exercise program Short Term Goal (STG) Pt to be independent and compliant with an appropriate HEP STG Duration 06/11/21 Assessment Summary Assessment Pt notes improved mobility following STM and TherEx today . Physical Therapy Plan Frequency and Duration Frequency of Treatment 2x/Week Duration of Treatment Two months Plan of Care Start Date 05/11/21 Plan of Care End Date 07/11/21 Therapeutic Interventions Therapeutic Interventions Aquatic Therapy,Home Exercise Program,Joint Mobilizations, Neuromuscular Re-education, Patient/Caregiver Education, Self-Care/Home Management,Soft Tissue Mobilization, Therapeutic Activities, Therapeutic Exercises Modalities Cold Pack/Ice Massage,Electric Stimulation,Hot Packs, Ultrasound Next Visit Focus/Plan Next Note Type Treatment Note Next Visit Plan Core strengthening, STM, Joint mobilizations
--- NOTE | 2021-05-28 17:33 | PT.OTN ---
Current Diagnoses Stiffness of other specified joint, not elsewhere classified (05/28/21) Spinal stenosis, lumbar region with neurogenic claudication (05/28/21) Physical Therapy Treatment Note PT-OP-A Visit Information Start: 05/11/21 17:42 Freq: Status: Active Protocol: Document 05/28/21 16:45 DCW (Rec: 05/28/21 17:33 DCW [id number]) Out-Patient Physical Therapy Visit Information Visit Information Visit Type Treatment Note Visit Note Visit 01/27 authorized through remainder of year Visit Start Time 16:45 Visit Stop Time 17:30 Total Visit Minutes 45 Visit Number 6 Number of CLOTH CARRIER Visits 0 Evaluation Information Evaluation Date 05/11/21 PT-OP-B Current Condition Start: 05/11/21 17:42 Freq: Status: Active Protocol: Document 05/11/21 16:45 DCW (Rec: 05/11/21 17:54 DCW [id number]) Current Condition History of Current Condition Onset Date Multi-year history Current Complaints Low back pain, stiffness, limited lifting, limited standing History of Current Condition Pt is a 60 year old male presenting with a long- standing history of low back pain, recently told he has DJD and lumbar stenosis. Pt additionally has RA, and has a lot of other affected joints, especially his ankles and hands. 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 Pt reports currently, his back bothers him when he lifts too much, like the 5 gallon water jugs for his water cooler, or if he stands for too long. Pt notes that where I am and where I should be are probably pretty far apart, but also admits that he has trouble telling how bad things are, because this has just slowly been building over a long time. Prior Treatments and Tests Hx Bilateral TKA Hx R Reverse TSA Treatment Goals Patient/Caregiver Goals I need to learn how to take care of my back so hopefully I can stop it from getting worse. Personal Factors Other Personal Factors That May Effect RA, OA, B TKA, R TSA Therapy/Recovery PT-OP-C Subjective Start: 05/11/21 17:42 Freq: Status: Active Protocol: Document 05/28/21 16:45 DCW (Rec: 05/28/21 17:33 DCW [id number]) OP-PT Subjective Patient Comments Patient Comments My hip is bothering me for some reason, but other than that, things are feeling pretty good PT-OP-F Manual Assessment Start: 05/11/21 17:42 Freq: Status: Active Protocol: Document 05/11/21 16:45 DCW (Rec: 05/12/21 09:54 DCW [id number]) Manual Assessments Soft Tissue Assessment Soft Tissue Mobility Assessment Moderate tone and tenderness bilateral QL, lumbar paraspinals Joint Mobility Assessment Joint Mobility Assessment P->A hypomobility T12, L1-4, complaints of tenderness PT-OP-K Range of Motion Start: 05/11/21 17:42 Freq: Status: Active Protocol: Document 05/11/21 16:45 DCW (Rec: 05/12/21 09:54 DCW [id number]) Lumbar Spine Range of Motion Lumbar Spine Active Degrees Testing Position Standing Flexion 50 Extension 12 Lateral Flexion Left 56 Lateral Flexion Right 60 Comments Lateral flexion measured in cm from fingertips to floor PT-OP-L Special Tests Start: 05/11/21 17:42 Freq: Status: Active Protocol: Document 05/11/21 16:45 DCW (Rec: 05/12/21 09:54 DCW [id number]) Special Tests Lumbar Spine Special Tests Lateral SI compression Test Results Negative KAMRON Test Results Negative Skip Test Results Negative Straight Leg Raise Test Results HS tightness, R=48?, L=55? Slump Test Results Negative Compression Test Results Negative A-P Shearing Test Results Negative PT-OP-M Strength Start: 05/11/21 17:42 Freq: Status: Active Protocol: Document 05/11/21 16:45 DCW (Rec: 05/12/21 09:54 DCW [id number]) Trunk Strength Trunk Manual Muscle Testing Core Stabilization MMT 4-/5, good TrA contraction , difficulty with maintaining PPT during SLR Hip Strength Hip Manual Muscle Testing Right Flexion (L2) 5 Normal Abduction 5 Normal Adduction 5 Normal External Rotation 5 Normal Internal Rotation 5 Normal Left Flexion (L2) 5 Normal Abduction 5 Normal Adduction 5 Normal External Rotation 5 Normal Internal Rotation 5 Normal Knee Strength Knee Manual Muscle Testing Right Flexion (S2) 5 Normal Extension (L3) 5 Normal Left Flexion (S2) 5 Normal Extension (L3) 5 Normal Ankle/Foot Strength Ankle and Foot Manual Muscle Testing Right Dorsiflexion (L4) 3+ Fair+ Plantarflexion (S1) 3+ Fair+ Inversion 5 Normal Eversion (S1) 5 Normal Comments PF/DF limited due to RA Left Dorsiflexion (L4) 5 Normal Plantarflexion (S1) 5 Normal Inversion 2+ Poor+ Eversion (S1) 2+ Poor+ Comments Inversion/Eversion limited due to RA PT-OP-Q Treatments Start: 05/11/21 17:42 Freq: Status: Active Protocol: Document 05/28/21 16:45 DCW (Rec: 05/28/21 17:33 DCW [id number]) Cardio Equipment Recumbent Elliptical (Biodex) Duration (Minutes) 6 Resistance 5 Seat Position 10 Gym Equipment Shuttle Recovery Unilateral Squats Resistance 75# Bilateral Squats Resistance 125# Therapeutic Ball 1 Exercise Details Low Trunk Rotation Ball Size/Color Red - 55 cm Body Position Supine Manual Therapy Treatment Soft Tissue Mobilization 1 Body Location B Lumbar paraspinals, QL, Piriformis Mobilization Type Strumming,Sustained Pressure Intensity/Depth Moderate Body Position Sidelying PT-OP-T Assessment and Plan Start: 05/11/21 17:42 Freq: Status: Active Protocol: Document 05/28/21 16:45 DCW (Rec: 05/28/21 17:33 DCW [id number]) Physical Therapy Assessment Impairments Impairments Activity Tolerance,Functional Activities,Functional Mobility ,Pain,ROM,Soft Tissue Mobility ,Tone Goals Three Impairment Pt unable to stand longer than 30 minutes without increased back pain Diesel Tractor Engine Mechanic Goal (LTG) Pt to report ability to stand >60 minutes without increased back pain LTG Duration 07/12/21 Two Impairment Pt experiences increased pain when lifting more than 30 pounds Diesel Tractor Engine Mechanic Goal (LTG) Pt to increase core strength to assist stabilizing back during lifting to enable him to change water jugs (35 pounds) on his home water cooler without increased pain LTG Duration 07/11/21 One Impairment Pt does not have an appropriate home exercise program Short Term Goal (STG) Pt to be independent and compliant with an appropriate HEP STG Duration 06/11/21 Assessment Summary Assessment Pt feeling much better through his hip following treatment. Physical Therapy Plan Frequency and Duration Frequency of Treatment 2x/Week Duration of Treatment Two months Plan of Care Start Date 05/11/21 Plan of Care End Date 07/11/21 Therapeutic Interventions Therapeutic Interventions Aquatic Therapy,Home Exercise Program,Joint Mobilizations, Neuromuscular Re-education, Patient/Caregiver Education, Self-Care/Home Management,Soft Tissue Mobilization, Therapeutic Activities, Therapeutic Exercises Modalities Cold Pack/Ice Massage,Electric Stimulation,Hot Packs, Ultrasound Next Visit Focus/Plan Next Note Type Treatment Note Next Visit Plan Core strengthening, STM, Joint mobilizations
--- NOTE | 2021-11-19 10:31 | PT.OPDS ---
Current Diagnoses Stiffness of other specified joint, not elsewhere classified (05/28/21) Spinal stenosis, lumbar region with neurogenic claudication (05/28/21) Visit Care Team Role Provider Type Bruno Pickens MD Family Provider Physician Primary Care Provider Specialty: Family Practice Address: [address] [place] [address], [id number] Email: [email or web address] Meek Mendez MD Attending Provider Physician Referring Provider Specialty: Physical Medicine and Rehab Address: [address] [place] [address], [id number] Email: [email or web address] Visit Number Visit Number 6 Discharge Summary PT-OP-B Current Condition Start: 05/11/21 17:42 Freq: Status: Active Protocol: Document 05/11/21 16:45 DCW (Rec: 05/11/21 17:54 DCW [id number]) Current Condition History of Current Condition Onset Date Multi-year history Current Complaints Low back pain, stiffness, limited lifting, limited standing History of Current Condition Pt is a 60 year old male presenting with a long- standing history of low back pain, recently told he has DJD and lumbar stenosis. Pt additionally has RA, and has a lot of other affected joints, especially his ankles and hands. 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 Pt reports currently, his back bothers him when he lifts too much, like the 5 gallon water jugs for his water cooler, or if he stands for too long. Pt notes that where I am and where I should be are probably pretty far apart, but also admits that he has trouble telling how bad things are, because this has just slowly been building over a long time. Prior Treatments and Tests Hx Bilateral TKA Hx R Reverse TSA Treatment Goals Patient/Caregiver Goals I need to learn how to take care of my back so hopefully I can stop it from getting worse. Personal Factors Other Personal Factors That May Effect RA, OA, B TKA, R TSA Therapy/Recovery PT-OP-C Subjective Start: 05/11/21 17:42 Freq: Status: Active Protocol: Document 05/28/21 16:45 DCW (Rec: 05/28/21 17:33 DCW [id number]) OP-PT Subjective Patient Comments Patient Comments My hip is bothering me for some reason, but other than that, things are feeling pretty good PT-OP-F Manual Assessment Start: 05/11/21 17:42 Freq: Status: Active Protocol: Document 05/11/21 16:45 DCW (Rec: 05/12/21 09:54 DCW [id number]) Manual Assessments Soft Tissue Assessment Soft Tissue Mobility Assessment Moderate tone and tenderness bilateral QL, lumbar paraspinals Joint Mobility Assessment Joint Mobility Assessment P->A hypomobility T12, L1-4, complaints of tenderness PT-OP-K Range of Motion Start: 05/11/21 17:42 Freq: Status: Active Protocol: Document 05/11/21 16:45 DCW (Rec: 05/12/21 09:54 DCW [id number]) Lumbar Spine Range of Motion Lumbar Spine Active Degrees Testing Position Standing Flexion 50 Extension 12 Lateral Flexion Left 56 Lateral Flexion Right 60 Comments Lateral flexion measured in cm from fingertips to floor PT-OP-L Special Tests Start: 05/11/21 17:42 Freq: Status: Active Protocol: Document 05/11/21 16:45 DCW (Rec: 05/12/21 09:54 DCW [id number]) Special Tests Lumbar Spine Special Tests Lateral SI compression Test Results Negative KAMRON Test Results Negative Skip Test Results Negative Straight Leg Raise Test Results HS tightness, R=48?, L=55? Slump Test Results Negative Compression Test Results Negative A-P Shearing Test Results Negative PT-OP-M Strength Start: 05/11/21 17:42 Freq: Status: Active Protocol: Document 05/11/21 16:45 DCW (Rec: 05/12/21 09:54 DCW [id number]) Trunk Strength Trunk Manual Muscle Testing Core Stabilization MMT 4-/5, good TrA contraction , difficulty with maintaining PPT during SLR Hip Strength Hip Manual Muscle Testing Right Flexion (L2) 5 Normal Abduction 5 Normal Adduction 5 Normal External Rotation 5 Normal Internal Rotation 5 Normal Left Flexion (L2) 5 Normal Abduction 5 Normal Adduction 5 Normal External Rotation 5 Normal Internal Rotation 5 Normal Knee Strength Knee Manual Muscle Testing Right Flexion (S2) 5 Normal Extension (L3) 5 Normal Left Flexion (S2) 5 Normal Extension (L3) 5 Normal Ankle/Foot Strength Ankle and Foot Manual Muscle Testing Right Dorsiflexion (L4) 3+ Fair+ Plantarflexion (S1) 3+ Fair+ Inversion 5 Normal Eversion (S1) 5 Normal Comments PF/DF limited due to RA Left Dorsiflexion (L4) 5 Normal Plantarflexion (S1) 5 Normal Inversion 2+ Poor+ Eversion (S1) 2+ Poor+ Comments Inversion/Eversion limited due to RA PT-OP-T Assessment and Plan Start: 05/11/21 17:42 Freq: Status: Active Protocol: Document 11/19/21 10:30 DCW (Rec: 11/19/21 10:30 DCW [id number]) Physical Therapy Assessment Assessment Summary Assessment Pt has now not been seen in more than five months. Pt will be discharged from skilled PT at this time, will require a new referral in order to return Physical Therapy Plan Discharge Physical Therapy Discharge Reasons No Longer Attending PT Next Visit Focus/Plan Next Note Type Discharge Summary
== END 2021-11-23 13:54 ==
LOC: PHYS 16:45
PROVIDERS: Family Provider Family Medicine; PCP Family Medicine; Referring Provider Physical Medicine & Rehabilitation Pain Medicine; Visit Provider Physical Medicine & Rehabilitation Pain Medicine
DX: M48.062 Spinal stenosis, lumbar region with neurogenic claudication (principal); M25.69 Stiffness of other specified joint, not elsewhere classified
CPT/HCPCS: 97110; 97140; 97162

== ENCOUNTER → 2021-12-02 14:10 | Outpatient (CLI) | payer BC, SELFPAY ==
[2020-10-06 11:46] VITALS: BMI 33.2
--- NOTE | 2021-12-02 | DI.CT.S_ITS ---
PROCEDURE: CT UE LT WO CON INDICATIONS: Pain in left shoulder TECHNIQUE: Noncontrast 1-1.5 mm thick sections acquired from the acromioclavicular joint to the inferior scapula, with coronal and sagittal reformatting. COMPARISON: [facility], CR, XR SHOULDER 2+ VIEWS LEFT, 11/23/2021, 9:14. FINDINGS: Image quality: Excellent. Bones: No acute, displaced fracture. Advanced degenerative change of the glenohumeral articulation with fibrocystic change, sclerosis of the opposing articular surfaces, and osteophytosis. No os acromiale. Narrowing of the acromial humeral interval, compatible with chronic rotator cuff tear. The acromioclavicular joint is maintained. Soft tissues: No significant abnormality. IMPRESSION: Advanced degenerative change of the glenohumeral articulation. Dictated by: Clyde Guallpa M.D. on 12/02/2021 at 14:56 Approved by: Clyde Guallpa M.D. on 12/02/2021 at 14:59
== END ==
PROVIDERS: Family Provider Family Medicine; PCP Family Medicine; Referring Provider Orthopaedic Surgery; Visit Provider Orthopaedic Surgery
DX: M25.512 Pain in left shoulder (principal)
CPT/HCPCS: 73200

== ENCOUNTER → 2022-01-22 12:53 | Outpatient (CLI) | payer BC, SELFPAY ==
[2020-10-06 11:46] VITALS: BMI 33.2
[2022-01-22 14:50] LABS: Add Manual Diff / Slide Review NO; Basophils Absolute Auto 0 /uL (0-100); Basophils Percent Auto 0.4 % (0-2); Eosinophils Absolute Auto 200 /uL (0-450); Eosinophils Percent Auto 1.9 % (2-4); Hematocrit 41.5 % (41-53); Hemoglobin 14.6 g/dL (13.5-17.5); Lymphocytes Absolute Auto 1000 /uL (1100-4500); Lymphocytes Percent Auto 11.6 % (25-40); Mean Corpuscular HGB Conc 35.2 % (30-36); Mean Corpuscular Hemoglobin 37.6 PG (26-34); Mean Corpuscular Volume 106.9 fL (80-100); Monocytes Absolute Auto 1100 /uL (0-900); Monocytes Percent Auto 12.9 % (3-14); Neutrophils Absolute Auto 6300 /uL (1500-7000); Neutrophils Percent Auto 73.2 % (50-75); Platelet Count 247 X10^3/uL (150-400); Red Blood Cell Count 3.88 X10^6/uL (4.5-5.9); Red Cell Distribution Width 13.7 % (11.6-14.8); White Blood Cell Count 8.7 X10^3/uL (4.5-11.0)
[2022-01-22 15:02] LABS: BUN Creatinine Ratio 18.3 (6-22); Blood Urea Nitrogen 31 mg/dL (9-20); Carbon Dioxide 24 mmol/L (22-32); Chloride 108 mmol/L (98-107); Estimated Glomerular Filt Rate 46 mL/min (>60); Glucose 86 mg/dL (80-110); HEMOLYSIS 27 (0-50); Potassium 4.3 mmol/L (3.4-5.1); Sodium 141 mmol/L (137-145)
== END ==
PROVIDERS: Family Provider Family Medicine; PCP Family Medicine; Referring Provider Orthopaedic Surgery; Visit Provider Orthopaedic Surgery
DX: Z01.818 Encounter for other preprocedural examination (principal); Z01.812 Encounter for preprocedural laboratory examination
CPT/HCPCS: 36415; 80048; 85025; 93005; 93010

== ENCOUNTER → 2022-03-30 11:55 | Outpatient (CLI) | payer BC, SELFPAY ==
[2020-10-06 11:46] VITALS: BMI 33.2
[2022-03-30 13:25] LABS: COVID19 -Nasal RAPID Negative (Negative)
== END ==
PROVIDERS: Family Provider Family Medicine; PCP Family Medicine; Referring Provider Orthopaedic Surgery; Visit Provider Orthopaedic Surgery
DX: Z20.822 Contact with and (suspected) exposure to COVID-19 (principal)
CPT/HCPCS: 87635; C9803

== ENCOUNTER 2022-03-31 10:56 | Day surgery (SDC) | payer BC, SELFPAY ==
[2020-10-06 11:46] VITALS: BMI 33.2
[2022-03-24 14:24] VITALS: BMI 32.4
[2022-03-31] VITALS (13 sets, daily range): BP systolic 103–130; BP diastolic 62–87; PULSE 63–86; RESP 12–18; TEMP 35.5–36.7; O2SAT 93–98; BMI 32.4
--- NOTE | 2022-03-31 06:00 | DI.RAD.S_ITS ---
PROCEDURE: XR SHOULDER LT 1V INDICATIONS: TSA TECHNIQUE: 1 views of the shoulder were acquired. COMPARISON: [facility], CR, XR SHOULDER 2+ VIEWS LEFT, 11/23/2021, 9:14. [facility], CR, XR SHOULDER RT MIN 2V, 10/06/2020, 10:25. FINDINGS: Postoperative changes reflecting left shoulder arthroplasty are present. There is a separate osseous fragment along the superior aspect of the glenohumeral joint space. This may have been present on prior exam but comparison is difficult secondary to overlapping structures. IMPRESSION: Postoperative arthroplasty changes as above. Separate osseous fragment along the superior glenohumeral joint space as above. This is suspected to be chronic. However, this area is not well evaluated on prior exams and cannot exclude subacute fracture. Dictated by: Marleny Alas M.D. on 03/31/2022 at 17:17 Approved by: Marleny Alas M.D. on 03/31/2022 at 17:19
--- NOTE | 2022-03-31 13:50 | PM.PREOP ---
Pre-operative Note COVID-19 COVID-19 status: Negative Result date/Date tested (Pos, Neg/Pending): 03/30/22 Interval Note History & Physical reviewed/Exam performed by Physician: Yes Changes to H&P: No
[2022-03-31] MEDS: LACTATED RINGERS 1,000 ML 42 ML IV ×2 (13:55→16:13)
[2022-03-31] MEDS: PREGABALIN 75 MG CAPSULE PO (13:58)
[2022-03-31] MEDS: CELECOXIB 200 MG CAPSULE PO (13:58)
[2022-03-31] MEDS: ACETAMINOPHEN 325 MG TABLET 975 MG PO (13:58)
--- NOTE | 2022-03-31 14:26 | SUR.PREOP ---
Block start time [1412] . Monitoring initiated and maintained throughout procedure. Oxygen and medications given by anesthesiologist Melita. Patient remained stable throughout procedure, no adverse reactions noted. Block end time [1427].
[2022-03-31] MEDS: TRANEXAMIC ACID 1,000 MG VIAL 1000 MG INJ ×2 (14:50→16:10)
[2022-03-31] MEDS: CEFAZOLIN 2 GM/20 ML SYRINGE IV (14:54)
--- NOTE | 2022-03-31 15:10 | SUR.OPER ---
Beach chair with Schlein shoulder positioner. Lower body on padded OR bed. Head in foam padded head cradle, secured with straps. Non-operative arm secured <90 degrees abduction. Pillow under knees. Safety belt at thigh. Cloth tape over blanket over lower legs. Gel pad under heels.
--- NOTE | 2022-03-31 15:23 | P.PCN_ITS ---
Procedures Date/Time Date of procedure: 03/31/22 Time of procedure: 14:10 General Procedure description: Ultrasound guided interscalene brachial plexus nerve block for post op pain control after left shoulder arthroplasty by Dr. Hernadez. Risk and benefits of procedure discussed with patient. ASA monitoring applied to patient. O2 given via nasal cannula. 2 mg Versed and 50 mcg fentanyl given for procedural sedation. Skin site was prepped with chlorhexidine and allowed to fully dry. Sterile gloves, mask, hat and probe cover were used to maintain sterility. 2% lidocaine and 30ga needle was used to make a small skin wheal at needle insert ion site. Under ultrasound guidance, a 21ga 50mm Pajunk needle was directed into the interscalene groove (middle/anterior scalenes) near the brachial plexus. Patient reported no parasthesias. After negative aspiration, 20 mL 0.5% bupivacaine and 10mg dexamethasone were injected around brachial plexus. Patient tolerated procedure well.
[2022-03-31] MEDS: BUPIVACAINE 0.5% W/ EPI (PF) 30 ML VIAL INJ (15:26)
--- NOTE | 2022-03-31 16:36 | P.OP_ITS ---
Operative Date/Time/Diagnoses Date of procedure: 03/31/22 Time of procedure: 16:36 Pre-op diagnosis: Left shoulder rotator cuff tear arthropathy Post-op diagnosis: same Procedure & Clinicians Procedure: Left reverse total shoulder placement with augmented glenoid Same procedure as scheduled: Yes Indications: The patient is had chronic left shoulder pain unresponsive to nonoperative therapies. Radiographic studies have revealed changes consistent with a massive rotator cuff tear and arthritis. They have elected to proceed with reverse total shoulder replacement after discussion of the risks benefits and alternatives. Risks discussed included but were not limited to: Failure to improve, instability, infection, nerve damage, deep venous thrombosis, pulmonary embolism, stroke, coma, myocardial infarction and . Relay Telegrapher: Caitie Combs Walker Click Yes if Unassisted: No Anesthesia Type: General, Peripheral nerve block and Local Operative Notes Findings: Severe glenoid deformity, widespread rotator cuff damage. Severe arthritic change of the glenohumeral joint. Closure Type: primary Specimen(s): none sent Prosthetic devices, grafts, tissues, transplants, or devices: Implants used in this procedure manufactured by the [employer] and included a [employer] total shoulder system. This included a 24 mm 20 degree full augment base plate with a 30 mm stem extension. There was a 40 mm nonlocking screw and 3 locking screws measuring 24, 16 and 36 mm in length. There was a 36 mm +4 lateralized glenosphere, and a retaining screw. On the humeral side there was a size 10 stem, a 36 neutral suture cup and a 36 mm +3 humeral cup. Applied: implant(s) Estimated Blood Loss (mL): 200 Blood products transfused: none Procedure in detail: The patient was seen in the preoperative area where they identified the left shoulder as the operative site and this was marked with my initials. They received preoperative antibiotics and underwent the induction of an interscalene block. They were taken to the operating room and placed on the operating room table in a supine position with the underwent the induction of a general anesthetic. There were then repositioned in the ?beach chair? position using a dedicated positioner. All pressure points were well padded. The knees were slightly bent to prevent tension on the sciatic nerves. A time study clerk-out was per formed. The left arm was prepared from the fingertips to the base of the neck with ChloraPrep in the usual fashion and draped through sterile drapes. An approximately 15 cm incision was created starting at the clavicle just above the coracoid and going to the deltoid insertion. The deltopectoral interval was used to access the shoulder taking the vein to the lateral side. The vein was unfortunately damaged during retraction to access the glenoid and cauterized and ligated. The upper 1 cm of the pectoralis major was released. The biceps tendon was identified and used as a guide to releasing the remaining subscapularis. The biceps itself was tenodesed over the pectoralis tendon using a suture. The subscapularis was absent. The shoulder was dislocated and a proximal humeral osteotomy performed using an intramedullary guide. Humeral osteophytes were removed. A proximal humeral protector was then placed. Retractors were placed access the glenoid. The soft tissues were removed circum ferentially around the glenoid. The guide was used to drill the guide hole in the center of the scapular access on the glenoid using the custom drill guide from the computer planning program. The guide pin was placed for reaming. The 20 degree Reamer was used. The central drill hole was created. The glenoid implant was then impacted into position. The peripheral locking screws were then placed through the appropriate guide. A glenoid head was applied and checked for stability. The set screw was then placed. We then turned our attention to the humerus. The proximal humeral protector was removed. Cylindrical reamers were used up to a size 8 mm. Broaching was then performed beginning with a small broach and working up until fit with good rotational stability was obtained. The guide for the proximal metaphyseal reamer was then applied and the metaphysis was reamed appropriately. The trial metaphyseal portion of the body was then applied to the broach. Trial reductions were performed and the size of the cup was optimized. Stability was checked in maximal internal and external rotation and range of motion was checked to allow access to the top of the head, internal rotation to an excess of 50? in the ?scarecrow position? and the ability to reach the groin. The appropriate final prosthetic components were then opened. The humeral prosthetic was then impacted into position. The humeral cup was placed. The joint was relocated and irrigated. The deltopectoral interval was reapproximated with 0 Vicryl. Subcutaneous layer was closed with interrupted 3-0 Vicryl and skin with a running 3 0 V lock suture. Subcutaneous tissues were then infiltrated with 0.5% Marcaine for postoperative pain control. An Aquacel Ag dressing was applied and the patient's arm was placed in a sling. The patient was then transferred to the recovery room in good condition having tolerated the procedure well. It should be noted that the services of a skilled therapist's assistant were required for this operation to allow access to the glenoid which requires experienced help for retraction to allow access. The procedure could not have been for performed without the assistance of Ms. Manriuqez. Complications: none Post-operative Condition: stable Disposition: PACU Plan for aftercare: The patient will be maintained on a standard reverse total shoulder protocol with passive range of motion in front of his body below shoulder level for 6 weeks followed by physical therapy. He likely will be discharged tomorrow from the hospital.
--- NOTE | 2022-03-31 17:17 | SUR.PHASEI ---
Addendum entered by Ara Luo R.N. 03/31/22 17:38: Receiving RN and PTCA made aware of NPO status until further notice at bedside report. Original Note: Pt A&Ox4, denies pain, VSS, and ready to transfer to room. Report given to receiving RN using SBAR with time allowed for questions. Has had 2 Ice chips. Was made aware from PA to keep pt NPO until further notice. Will make receiving RN aware.
[2022-03-31] MEDS: LACTATED RINGERS 1,000 ML 100 ML IV (19:24)
[2022-03-31] MEDS: NAPROXEN 250 MG TABLET 500 MG PO (20:47)
[2022-03-31] MEDS: METOPROLOL IR 25 MG TABLET PO (20:48)
[2022-03-31] MEDS: ASPIRIN EC 81 MG TABLET PO (20:48)
[2022-03-31] MEDS: TAMSULOSIN 0.4 MG CAPSULE PO (20:48)
[2022-03-31] MEDS: DOCUSATE 100 MG CAPSULE PO (20:48)
[2022-03-31] MEDS: HYDRALAZINE 25 MG TABLET PO (20:48)
[2022-04-01] VITALS: BP 145/86; PULSE 76; RESP 17; TEMP 36.6; O2SAT 96
[2022-04-01 03:48] VITALS: BP 112/75; PULSE 74; RESP 16; TEMP 36; O2SAT 97
[2022-04-01 07:20] LABS: Hematocrit 37.6 % (41-53); Hemoglobin 12.9 g/dL (13.5-17.5)
--- NOTE | 2022-04-01 08:23 | P.DS_ITS ---
History of Present Illness History of Present Illness Date Patient Seen: 04/01/22 Time Patient Seen: 08:24 Chief complaint: Shoulder pain Narrative: Left shoulder pain is mild. Denies fever or chills. No nausea or vomiting. Patient states his is home to assist him. Discharge Providers Provider Discharge Date: 04/01/22 Primary care physician: Bruno Pickens MD Consults: 03/31/22 17:31 Consult to Discharge Planning Routine Comment: Consult to Physical Therapy Evaluate & Treat Comment: Physician Instructions: pendulums, PROM 90 FF, 0 ER, 0 Abd, IR to body Discharge provider: Ganesh Lewis PA-C Exam Vital Signs (past 8 hours): - 04/01/22 03:48 Temperature 96.8 F L Pulse Rate 74 Respiratory Rate 16 Blood Pressure 112/75 Pulse Oximetry 97 Oxygen Flow Rate 0 Oxygen Delivery Method Nasal Cannula Oxygen Flow Rate 0 Narrative Exam Narrative: 61-year-old male sitting in bedside having breakfast in no acute distress. Dres sing is Clean, dry, intact.. Motor functions intact grossly left upper extremity. Sensation grossly intact to light touch distally left upper extremity. Const General: cooperative and comfortable Nutritional Appearance: average body habitus Chest Chest: normal inspection of the chest Resp Effort & Inspection: normal respiratory effort and able to speak in complete sentences Objective Labs Result Diagrams: 04/01/22 07:09 Labs: Laboratory Results - last 24 hr 04/01/22 07:09 Hgb 12.9 L Hct 37.6 L PFSH Medical History BPH (benign prostatic hyperplasia) GERD (gastroesophageal reflux disease) Hypertension Obstructive sleep apnea of adult (~2004) Primary insomnia Rheumatoid arthritis Snoring Surgical History History of arthroplasty of right shoulder (10/09/20) History of bilateral knee replacement (~2009) Social History household members: spouse Smoking Status: Former smoker alcohol intake: current Discharge Assessment & Plan Assessment and Plan Assessment: Patient progressing as expected Plan of Treatment: Patient will work with physical therapy this morning. Patient will be maintained on a standard reverse total shoulder protocol with passive range of motion in front of his body the low shoulder level for 6 weeks followed by formal outpatient physical therapy. Discharge home today in stable condition. Discharge Plan Discharge Plan Patient Disposition: Home Discharge orders & Medications Discharge Orders: Discharge (Order); Ordered 04/01/22 Ordered By: Ganesh Lewis Prescriptions: New acetaminophen 325 mg Tablet 650 mg PO Q6HR Qty: 60 0RF aspirin 81 mg Tablet,Delayed Release (Dr/Ec) 81 mg PO BID Qty: 60 0RF docusate sodium 100 mg Capsule 100 mg PO BID Qty: 20 0RF oxycodone 10 mg Tablet 10 mg PO Q3HR PRN (Reason: Pain, Severe (7-10)) Qty: 60 0RF Continued calcium carbonate-vitamin D3 [Calcium 500 + D] 500 mg(1,250mg) -200 unit Tablet 1 tab PO DAILY Qty: 0 omeprazole 20 mg capsule,delayed release(DR/EC) 20 mg PO DAILY Qty: 90 3RF metoprolol tartrate 25 mg tablet 25 mg PO BID Qty: 180 3RF hydralazine 50 mg tablet See Rx Instructions .ROUTE .COMPLEX Qty: 180 3RF Dose Instruction: TAKE 1 TABLET BY MOUTH TWICE DAILY Rx Instructions: TAKE 1 TABLET BY MOUTH TWICE DAILY acyclovir 400 mg tablet See Rx Instructions .ROUTE .COMPLEX Qty: 180 0RF Dose Instruction: TAKE 1 TABLET BY MOUTH EVERY DAY Rx Instructions: TAKE 1 TABLET BY MOUTH EVERY DAY piroxicam 20 mg capsule See Rx Instructions .ROUTE .COMPLEX Qty: 30 5RF Dose Instruction: TAKE 1 CAPSULE BY MOUTH DAILY Rx Instructions: TAKE 1 CAPSULE BY MOUTH DAILY losartan-hydrochlorothiazide 100-12.5 mg tablet 1 tab PO DAILY Qty: 90 3RF tamsulosin 0.4 mg capsule See Rx Instructions .ROUTE .COMPLEX Qty: 120 5RF Dose Instruction: TAKE 1 CAPSULE BY MOUTH DAILY Rx Instructions: TAKE 1 CAPSULE BY MOUTH Twice DAILY methotrexate sodium 2.5 mg Tablet 15 mg PO QWEEK Label Comments: Pt takes 6 tabs once a week Rinvoq 15 mg Tablet Extended Release 24 Hr 15 mg PO DAILY (DME) Respironics Remstar CPAP Qty: 1 Label Comments: Pressure: 12-18 cmH2O DME: Rx Instructions: As directed Discontinued acetaminophen 325 mg tablet 650 mg PO .prn PRN (Reason: Pain) Follow up/Referrals: Bruno Pickens MD [Primary Care Provider] - Maik Hernadez MD [Physician] - (2 weeks) Diet/Activity/Treatments Diet: Diet as Tolerated Activity: The patient will be maintained on a standard reverse total shoulder protocol with passive range of motion in front of his body below shoulder level for 6 weeks followed by physical therapy. Cold/Heat Therapy: Apply ice to shoulder as needed Skin/Wound/Dressing Care Dressing: Keep dressing clean and dry Visit Report/Discharge Packet Instructions: DI for Shoulder Replacement Stand Alone Forms: Surgery Discharge Discharge Data Primary Care Provider: Bruno Pickens Attending Provider: Maik Hernadez Quality VTE Deep Vein Thrombosis/Pulmonary Embolism Present on Admission: No
[2022-04-01 09:19] VITALS: BP 125/71; PULSE 79
[2022-04-01] MEDS: NAPROXEN 250 MG TABLET 500 MG PO (09:19)
[2022-04-01] MEDS: HYDRALAZINE 25 MG TABLET PO (09:19)
[2022-04-01] MEDS: TAMSULOSIN 0.4 MG CAPSULE PO (09:19)
[2022-04-01 09:22] VITALS: BP 125/71; PULSE 79
[2022-04-01] MEDS: LOSARTAN 50 MG TABLET 100 MG PO (09:22)
[2022-04-01] MEDS: CALCIUM CARB/VIT D3 500/200 TABLET 1 EACH PO (09:22)
[2022-04-01] MEDS: DOCUSATE 100 MG CAPSULE PO (09:22)
[2022-04-01] MEDS: PANTOPRAZOLE DR 20 MG TABLET PO (09:22)
[2022-04-01] MEDS: METOPROLOL IR 25 MG TABLET PO (09:22)
[2022-04-01] MEDS: ASPIRIN EC 81 MG TABLET PO (09:24)
[2022-04-01] MEDS: hydroCHLOROthiazide 25 MG TABLET 12.5 MG PO (09:30)
--- NOTE | 2022-04-01 10:45 | PT.IIE ---
Current Diagnoses Rheumatoid arthritis without rheumatoid factor, multiple sites (03/31/22) Primary osteoarthritis, left shoulder (03/31/22) Surgery Performed Operation Date: 03/31/22 14:00 Actual Procedures p Reverse Total Shoulder Arthroplasty(Left) - Maik Hernadez MD Surgical History (Last Reviewed 04/01/22 @ 08:25 by Ganesh Lewis PA-C) History of arthroplasty of right shoulder (10/09/20) History of bilateral knee replacement (~2009) Medical History (Last Reviewed 04/01/22 @ 08:25 by Ganesh Lewis PA-C) BPH (benign prostatic hyperplasia) GERD (gastroesophageal reflux disease) Hypertension Obstructive sleep apnea of adult (~2004) Primary insomnia Rheumatoid arthritis Snoring Physical Therapy Inpatient Evaluation/Re-Eval M1 PT/OT-IP Prior Functional Status Start: 04/01/22 14:08 Freq: NEEDED Status: Active Protocol: Document 04/01/22 10:45 AB (Rec: 04/01/22 14:17 AB [id number]) Medical Review Prior Functional Status Medical History Reviewed Yes Communication able to make needs known Mobility and Gait pt stated that he is independent with all mobilities and ambulation without AD Social History Household Members spouse Living Arrangements House Number of Floors (Floors) One Floor Number of Stairs To Enter/Railing? 6 steps B rails to enter the house Home Environment High Toilet,Walk in Shower Home Equipment Hand Held Shower,Grab Bars Near Toilet,Grab Bars In Shower M2 PT-IP Current Condition Start: 04/01/22 14:08 Freq: NEEDED Status: Active Protocol: Document 04/01/22 10:45 AB (Rec: 04/01/22 14:17 AB [email or web address]) Physical Therapy Current Condition Current Condition Evaluation Date 04/01/22 Treatment Diagnosis s/p L TSA reverse; difficulty in walking Onset Date 03/31/22 M3 PT-IP Subjective Start: 04/01/22 14:08 Freq: NEEDED Status: Active Protocol: Document 04/01/22 10:45 AB (Rec: 04/01/22 14:17 AB [email or web address]) Subjective Physical Therapy Visit Type Type Initial Evaluation Visit Start Time 10:45 Visit Stop Time 11:10 Total Visit Minutes 25 Number of PHOTO RETOUCHER Visits 0 Physical Therapy Visit Comments Patient Comments agreeable to do PT; spouse in room with pt Therapy Pain Assessment Pain When Pain Assessed At Rest Pain Present Pain Present Pain Reported Location right shoulder Intensity 2 Scale Used Numeric (0 - 10) Pain Management Techniques Apply Cold,Distraction, Modification of Treatment,Re- positioning,Timing of Activity with Medications M4 PT-IP Mobility and Gait Start: 04/01/22 14:08 Freq: NEEDED Status: Active Protocol: Document 04/01/22 10:45 AB (Rec: 04/01/22 14:17 AB [id number]) PT-Bed Mobility Assessment Supine to Sit Supine to Sit Standby Assistance Sit to Supine Sit to Supine Standby Assistance PT-Transfer Assessment Sit to and From Stand Sit to and from Stand Standby Assistance,1 Person Assistance Equipment Transfer Assistive Device None,Gait Belt Orthotic/Prosthetic Devices or Brace: Yes Comments Mobility Comments pt agreeable to do PT. Spouse in room. spouse stated that she is a [employer]ER and pt had previous shoulder surgery and knows how to manage sling and assist pt. reviewed shoulder precautions, pendulum, elbow/hand/wrist exercises with pt and spouse. pt completed supine to sit SBA . adjusted sling. pt still does not have motor control back on LUE and pendulum not completed due to safety and educated on technique and h/o provided. PROM for elbow and hand/wrist exercises completed . spouse was able to put sling back on pt. pt ambulated ~ 150 ft without AD SBA. antalgic gait. pt stated that he had knees and hip surgeries before and has RA. completed up/down 3 steps x 2 sets using one rail SBA. ambulated back to his room and back to bed SBA. pt and spouse without further concerns. call light and table placed within reach. Gait Assessment Gait Gait Assistance Required: Standby Assistance Distance (Feet) 150 Able to Maintain Weight Bearing Status Yes During Gait Assistive Devices Assistive Device None Orthotic/Prosthetic Devices or Brace: Yes Gait Deviations General Gait Pattern Antalgic,Decreased Stride Length,Decreased Feet Clearance Factors Limiting Gait Function Factors Limiting Gait Function Decreased Activity Tolerance, Decreased Strength,Limited Range of Motion,Pain,Poor Balance Stair Climbing Assessment Evaluation Level of Assist On Stairs Standby Assistance Devices Stair Climbing Assistive Devices Right Railing Technique/Endurance Stair Climbing Direction Ascend and Descend Stair Climbing Technique Step to Step Number of Steps Climbed 3 Query Text: Stair Climbing Set # Repetitions (reps) 2 PT-Balance Assessment Sitting Balance and Reactions Static Sitting Balance Ability Normal Dynamic Sitting Balance Ability Normal Standing Balance and Reactions Static Standing Balance Ability Good Dynamic Standing Balance Ability Good Device Used without AD M5 PT-IP Objective Assessments Start: 04/01/22 14:08 Freq: NEEDED Status: Active Protocol: Document 04/01/22 10:45 AB (Rec: 04/01/22 14:17 AB [email or web address]) Orientation Orientation/Cognition Level of Alertness Alert Orientation Name,Age,Birthday,Month,Date, Year,Day of Week,Place, Situation Language Function Ability No Deficits Noted Safety Awareness Understands Safety Issues Memory Description No Deficits Noted Gross Range of Motion Lower Extremity ROM Assessment Within Functional Limits Strength Lower Extremity Strength Assessment Within Functional Limits Coordination Assessment Gross Coordination Gross Coordination WNL Sensation Assessment Sensation Gross Sensation Left UE Impaired Sensation Description Numbness Comments Sensation Comments LUE still is numb from surgery and does not have motor control back M6 PT-IP Treatment Start: 04/01/22 14:08 Freq: NEEDED Status: Active Protocol: Document 04/01/22 10:45 AB (Rec: 04/01/22 14:17 AB [email or web address]) Physical Therapy Treatment Education Education Provided Precautions,Weight Bearing Status,Post-Op Packet,Safety M7 PT-IP Assessment and Plan Start: 04/01/22 14:08 Freq: NEEDED Status: Active Protocol: Document 04/01/22 10:45 AB (Rec: 04/01/22 14:17 AB [email or web address]) PT Summary Assessment and Plan Potential Rehabilitation Potential Good Status of Condition at Evaluation Evolving Summary Impairments Pain,ROM,Strength,Balance, Coordination,Sensation,Tone, Cognition,Bed Mobility, Transfers,Gait,Activity Tolerance Assessment Summary pt requiring SBA with mobility and will have his spouse to assist him. pt had previous shoulder surgery and is aware of his precautions. spouse also able to manage sling for pt and assist pt as needed. pt may go home when medically stable. will need outpt PT. Goals Bed Mobility Goal Independent Transfer Goal Independent Gait Goal Independent Gait Distance 300 Other Goals up/down 6 steps 1 rail mod I Days to Meet Goals 3 Frequency of Treatment Frequency Of Treatment Twice a Day Treatment Plan Physical Therapy Treatment Plan Bed Mobility Training,Transfer Training,Gait Training, Therapeutic Exercise,Balance Retraining,Post Op Education, Discharge Planning,Hot or Cold Pack,Neuromuscular Re-ed, Coordination Retraining,Manual Therapy Precautions Shoulder Precautions Sling,PROM,Internal Rotation to Body,No External Rotation, No Abduction,Forward Flexion to 90 degrees,Pendulums Weight Bearing Status Weight Bearing Status Non-Weight Bearing Allowed Weight Bearing Amount (enter % LUE NWB or #) (%) Recommendations To Nursing Amount of Assist Needed Standby Assistance Discharge Recommendations PT Discharge Recommendations Home with Assistance, Outpatient PT Transportation Needs at Discharge Private Vehicle
[2022-04-01 10:57] VITALS: BP 125/71; PULSE 82; RESP 18; TEMP 36.4; O2SAT 94
--- NOTE | 2022-04-01 11:39 | PC.NURSE ---
Pt dressed and ready for discharge home, to be transported via pov with spouse. IV removed and no tele. Discussed discharge instructions with pt and spouse and answered questions. Discussed with pt and spouse stroke education, shoulder replacement dc instructions, and new mediation education. Pt taken out via wheel chair with all belongings by [employer].
--- NOTE | 2022-04-01 13:15 | CM.DANOTE ---
Patient is a 61 yo male who was admitted on 03/31/22 for L Total Shoulder. Pt has [employer] PRE for insurance and his PCP is Dr. Bruno Pickens. EMR was reviewed. Per Ortho, pt tolerated procedure well and medially stable to d/c home today pending PT eval. 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 Pt denies any hx of HH or SNF and has a hx of bilateral knee replacements in 2009 and Right Total Shoulder last year in 2020 and therefore knows what to expect with recovery and safety precautions. Pt and spouse do not anticipate any needs and spouse is ready to provide transport once PT works with pt this morning. Per PT, recommending safe d/c home with spouse assist and outpt f/u. Plan: Patient to d/c home via spouse POV this morning around 1000 and outpt f/u and no further SW needs at this time. OSNIA Marrero Discharge Planning/Care Management CM Discharge Assessment Start: 04/01/22 13:13 Freq: Status: Active Protocol: Document 04/01/22 13:13 BF (Rec: 04/01/22 13:15 BF [id number]) Discharge Planning Assessment Assigned Hotel Lobby Concierge SONIA Tellez DPOA/Assigned Designee Name spouse Janay Contact Information [phone] Advance Directives? No History Provided By Patient,Medical Record Has Patient been admitted in last 30 No days? Prior Living Arrangements House Household Members spouse Type of transporation used prior to Drives own vehicle admit Independent with ADL's Yes Is patient alert and oriented? Yes Caregiver for Another No Community Services used prior to Physical Therapy admission: Barriers to Discharge No Discharge Plan Home Community Services Physical Therapy Transportation Arrangement Spouse already bedside and transporting this morning around 1100 Referrals Initiated None needed Whiteboard Updated in Patient Room with Yes name and ext. # of Hotel Lobby Concierge Review Status In Process Please Provide Date Initial DC 04/01/22 Assessment Was Performed Next Review Type Continued Stay Review Pre-Anesthesia Assessment Start: 02/16/22 08:14 Freq: Status: Discharge Protocol: Document 03/24/22 14:24 CAB (Rec: 02/16/22 08:51 CAB [id number]) Pre-Anesthesia Assessment Preferred Name [facility] Patient Information Reviewed Via Phone Assessment Assessment Completed With Patient,Spouse Diagnostic Results BMP/CMP,CBC,EKG Comment Labs/ECG @ [facility] 01/22/22, COVID screen @ [facility] 03/30/22 Primary Care Provider Bruno Pickens Seen Specialist in Last 12 Months Yes Specialist Seen Orthopedist,Other Primary Language Sinhala Preferred Language Sinhala Call Center Assistant Required No Height 182.88 cm Weight 108.409 kg Body Mass Index (BMI) 32.4 Hearing Ability Normal Visual Assist Contacts,Glasses Dentition Type Teeth, Natural Present Barriers to Learning None Hx Anesthesia Reactions Yes: Dr. Cramer told pt difficult intubation, required 2 anesthesiologists Additional comment Second review completed for anesthesia to review after pt had Nuc stress. Hx Family Anesthesia Reaction No Hx Malignant Hyperthermia No Hx Blood Transfusions No Hx Blood Transfusion Reaction No Anesthesia Review Requested Yes: !st review done 02/16/22, surgery r/s'd 03/31 Additional comment Second review completed for anesthesia to review after Nuc stress complete Network Management Specialist No alcohol intake current alcohol intake frequency a few times a month Smoking Status Former smoker Tobacco type cigarettes how long ago did patient quit smoking 1999 Substance Use Type does not use Pain Present Pain Reported Musculoskeletal Symptoms Abnormal Gait,Back Pain,Joint Pain,Limited Range of Motion, Neck Pain History of Falling (Recent or History of No ) Patient is completely paralyzed or No completely immobile Mental Status Oriented to own ability Is patient on oxygen? 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 López-last visit 09/08 Cardiac Testing Yes: [facility]uc [facility] 03/04/22 Hx Pacemaker/ICD No Pacemaker Rep Required? No Cardiac Clearance Received Yes Comment Cardiac records scanned Diet Type At Home Regular dysphagia No Gastrointestinal Symptoms Reflux Urinary Catheter Present No Hx Urinary Self Catheterization No Diabetes No Hx Drug Resistant Organism No Presence of External or Internal Medical Yes: bilateral knee Devices replacements, right shoulder Have you had any close contact with No someone diagnosed with COVID-19? Received a COVID vaccine? Yes: Has not had any boosters Received all doses? No Marital Status Lives With spouse Patient Discharge Plan Description Return Home Comment Pt not advised on length of stay per surgeon Feels Safe in Current Environment Yes Been Physically Hurt or Threatened By a No Person in Current Environment Do you have thoughts of harming yourself None or others? Are you currently considering suicide? No Do you have a plan to hurt yourself or No Plan others? Do You Have Any Spiritual Beliefs That No May Affect Your HC Choices? Do You Have Any Cultural Practices That No May Affect Your HC Choices? Who Can We Speak to About Patient's Care Family, friends Identifying Code for Release of Patient Declines to issue Information Health Care Proxy/Next of Kin Janay () Health Care Proxy Emergency Contact Name Janay () Emergency Contact Advance Directives? No Power of Crossing Flagman Yes Power of Crossing Flagman Name Janay Gottlieb Power of Crossing Flagman Phone Number above PAC Instructions Bring CPAP/BIPAP,Medications to take/avoid,Nasal antibiotic ,No ETOH/petroleum product on skin DOS,NPO,Post-op transportation,Pre-surgical wash,Sensory aids,Sturdy shoes /comfortable clothes,Do not bring valuables and remove jewelry Stop Bang Assessment Is your BMI more than 35 kg/m2 Yes Age over 50 Yes Estimated neck circumference greater Yes than 40cm or 16in Gender male Yes Result Positive
== END 2022-04-01 11:23 | disposition home or self-care (01) ==
LOC: OR 15:39 → AC 15:40
PROVIDERS: Family Provider Family Medicine; PCP Family Medicine; Referring Provider Orthopaedic Surgery; Visit Provider Orthopaedic Surgery
PROC: (CPT 23472; principal; 2022-03-31 14:00)
DX: M19.012 Primary osteoarthritis, left shoulder (principal); M06.09 Rheumatoid arthritis without rheumatoid factor, multiple sites; M75.102 Unspecified rotator cuff tear or rupture of left shoulder, not specified as traumatic; G47.33 Obstructive sleep apnea (adult) (pediatric); N40.0 Benign prostatic hyperplasia without lower urinary tract symptoms; K21.9 Gastro-esophageal reflux disease without esophagitis; I10 Essential (primary) hypertension; Z87.891 Personal history of nicotine dependence
CPT/HCPCS: 23472; 36415; 64450; 73020; 85014; 85018; 97161; C1776; J0330; J0690; J2250; J2405; J2704; J3010